=== PATIENT | female | born 1985 | race Caucasian/White ===

== ENCOUNTER 2020-07-15 14:56 | Emergency (ER) | payer OTHER ==
[2020-07-15 16:00] LABS: Absolute Neutrophil Ct (ANC) 5.89 (1.4-6.9); BASOPHIL % 0.2 % (0.0-0.4); Basophil (Absolute #) 0.02 (0-0.4); Eosinophil % 2.8 % (0.00-5.0); Eosinophil (Absolute #) 0.32 (0-0.5); Hematocrit 41.7 % (35-47); Hemoglobin 13.4 gm/dl (12.0-16.0); Lymphocyte (Absolute #) 4.31 (1.0-4.6); Lymphocytes % 37.1 % (24.0-44.0); Mean Cell Volume 85.8 fl (78-100); Mean Corpuscular Hemoglobin 27.6 pg (26-32); Mean Corpuscular Hgb Concent. 32.1 g/dl (32-36); Mean Platelet Volume 12.5 fl (7.5-11.0); Monocyte (Absolute #) 1.07 (0.0-1.3); Monocytes % 9.2 % (0.0-12.0); Neutrophil % 50.7 % (36.0-66.0); Platelet Count 353 K/mm3 (150-450); Red Blood Count 4.86 M/mm3 (4.1-5.4); Red Cell Distribution Width 17.1 % (11.5-14.0); White Blood Count 11.6 K/mm3 (4.0-10.5)
[2020-07-15 16:07] LABS: ALBUMIN 4.6 g/dL (3.5-5.0); ALKALINE PHOSPHATASE 104 U/L (38-126); AMYLASE 65 U/L (30-110); ANION GAP 11.2 MEQ/L (5-15); BLOOD UREA NITROGEN 9 mg/dL (7-17); CHLORIDE 105 mmol/L (98-107); Calcium 9.5 mg/dL (8.4-10.2); Carbon Dioxide 26 mmol/L (22-30); Creatinine 1 0.68 mg/dL (0.52-1.04); EST GLOMERULAR FILTRATION RATE > 60.0 ML/MIN; Glucose 95 mg/dL (74-106); LIPASE 104 U/L (23-300); Potassium 3.7 mmol/L (3.5-5.1); SGOT/AST 19 U/L (14-36); SGPT/ALT 18 U/L (0-35); SODIUM 138 mmol/L (137-145); Total Protein 7.9 g/dL (6.3-8.2)
--- NOTE | 2020-07-15 16:22 | ERPHSYRPT ---
- History of Present Illness Historian: patient Exam Limitations: no limitations Patient Subjective Stated Complaint: pt her for pain to abd for a week now, vomiting, vomited x1 today, had bm 5 weeks ago. has been taking mirlax Triage Nursing Assessment: pt alert, resp easy, skin w/d/p, moves all ext well, face mask in place. abd soft Physician History: 35 yo wf w periumbilical pain x 10 days. Although the pt looks painfree, she states that it is a 10. Pain does not radiate and described as sharp. She has had some N/V and states that she has not had a BM in 5wks. Pt denies hematemesis/melena/hematochezia/dysuria/hematuria/fever/cough/trauma/. Timing/Duration: other (10days) Quality: sharpness Abdominal Pain Onset Location: epigastric Pain Radiation: no radiation Severity of Pain-Max: severe Severity of Pain-Current: severe Modifying Factors: Improves With: nothing Associated Symptoms: nausea, vomiting, No diarrhea Previous symptoms: no prior history Allergies/Adverse Reactions: latex Allergy (Verified 07/15/20 15:15) Penicillins Allergy (Verified 07/15/20 15:15) Home Medications: Ergocalciferol (Vitamin D2) [Vitamin D2] 1 units WEEKLY 07/15/20 [History] Fluoxetine HCl 10 mg [Prozac 10 mg] 1 ea DAILY 07/15/20 [History] Fluticasone/Vilanterol [Breo Ellipta 100-25 Mcg INH] 1 ea DAILY 07/15/20 [History] Omeprazole Magnesium [Prilosec Otc] 1 ea DAILY 07/15/20 [History] Propranolol HCl 10 mg DAILY 07/15/20 [History] Quetiapine Fumarate 1 ea DAILY 07/15/20 [History] Hx Influenza Vaccination/Date Given: Yes Hx Pneumococcal Vaccination/Date Given: No Immunizations Up to Date: Yes Travel Risk - International Travel Have you traveled outside of the country in past 3 weeks: No - Coronavirus Screening Are you exhibiting any of the following symptoms?: No Close contact with a COVID-19 positive Pt in past 14-21 Days: No - Review of Systems Constitutional: No Symptoms Eyes: No Symptoms Ears, Nose, & Throat: No Symptoms Respiratory: No Symptoms Cardiac: No Symptoms Abdominal/Gastrointestinal: No Symptoms, Abdominal Pain, Nausea, Vomiting, Constipation, No Diarrhea Genitourinary Symptoms: No Symptoms Musculoskeletal: No Symptoms Skin: No Symptoms Neurological: No Symptoms Psychological: No Symptoms Endocrine: No Symptoms Hematologic/Lymphatic: No Symptoms Immunological/Allergic: No Symptoms - Past Medical History Pertinent Past Medical History: Yes Neurological History: Seizures Respiratory History: Asthma - Past Surgical History Past Surgical History: Yes Female Surgical History: Tubal Ligation - Social History Smoking Status: Former smoker Exposure to second hand smoke: No Drug Use: none Patient Lives Alone: Yes Significant Family History: no pertinent family hx - Female History Hx Last Menstrual Period: nov Hx Now: No - Nursing Vital Signs Nursing Vital Signs: Initial Vital Signs Temperature 97.7 F 07/15/20 16:09 Pulse Rate 73 07/15/20 16:09 Respiratory Rate 18 07/15/20 16:09 Blood Pressure 111/63 07/15/20 16:09 O2 Sat by Pulse Oximetry 99 07/15/20 16:09 Pain Scale Pain Intensity 4 - Physical Exam General Appearance: no apparent distress Eye Exam: PERRL/EOMI, eyes nml inspection, No scleral icterus, No pale conjunctivae Ears, Nose, Throat Exam: normal ENT inspection, TMs normal, pharynx normal, moist mucous membranes Neck Exam: normal inspection, non-tender, supple, full range of motion, No meningismus, No mass, No Brudzinski, No Kernig's Respiratory Exam: normal breath sounds, lungs clear, airway intact, No respiratory distress Cardiovascular Exam: regular rate/rhythm, normal heart sounds, No murmur Gastrointestinal/Abdomen Exam: soft, normal bowel sounds, tenderness (Mild diffuse wo guarding/rebound), No rebound Back Exam: normal inspection, normal range of motion, No CVA tenderness Extremity Exam: normal inspection, normal range of motion Neurologic Exam: alert, oriented x 3, 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, 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, normal mood/affect, nml cerebellar function, nml station & gait, sensation nml, No motor deficits, No sensory deficit Skin Exam: normal color Lymphatic Exam: No adenopathy SpO2 Interpretation: normal SpO2: 99 O2 Delivery: Room Air - Course Nursing assessment & vital signs reviewed: Yes - CT Exams Abdomen/Pelvis CT Interpretation: Discussed w/radiologist (Mild fecal stasis/spondylolysis wo spondylolisthesis) Ordered Tests: Active Orders 24 hr Category Date Time Status ABDOMEN AND PELVIS W CONTRAST [CT] Stat Exams 07/15/20 17:17 Taken AMYLASE Stat Lab 07/15/20 15:45 Completed CBC W DIFF Stat Lab 07/15/20 15:45 Completed CMP Stat Lab 07/15/20 15:45 Completed LIPASE Stat Lab 07/15/20 15:45 Completed UA W/RFX UR CULTURE Stat Lab 07/15/20 16:41 Completed Lab/Rad Data: Laboratory Result Diagrams 07/15/20 15:45 07/15/20 15:45 Laboratory Results 07/15/20 07/15/20 07/15/20 Range/Units 16:41 15:45 15:45 WBC 11.6 H (4.0-10.5) K/mm3 RBC 4.86 (4.1-5.4) M/mm3 Hgb 13.4 (12.0-16.0) gm/dl Hct 41.7 (35-47) % MCV 85.8 (78-100) fl MCH 27.6 (26-32) pg MCHC 32.1 (32-36) g/dl RDW 17.1 H (11.5-14.0) % Plt Count 353 (150-450) K/mm3 MPV 12.5 H (7.5-11.0) fl Gran % 50.7 (36.0-66.0) % Eos # (Auto) 0.32 (0-0.5) Absolute Lymphs (auto) 4.31 (1.0-4.6) Absolute Monos (auto) 1.07 (0.0-1.3) Lymphocytes % 37.1 (24.0-44.0) % Monocytes % 9.2 (0.0-12.0) % Eosinophils % 2.8 (0.00-5.0) % Basophils % 0.2 (0.0-0.4) % Absolute Granulocytes 5.89 (1.4-6.9) Basophils # 0.02 (0-0.4) Sodium 138 (137-145) mmol/L Potassium 3.7 (3.5-5.1) mmol/L Chloride 105 (98-107) mmol/L Carbon Dioxide 26 (22-30) mmol/L Anion Gap 11.2 (5-15) MEQ/L BUN 9 (7-17) mg/dL Creatinine 0.68 (0.52-1.04) mg/dL Estimated GFR > 60.0 ML/MIN Glucose 95 (74-106) mg/dL Calcium 9.5 (8.4-10.2) mg/dL Total Bilirubin 0.40 (0.2-1.3) mg/dL AST 19 (14-36) U/L ALT 18 (0-35) U/L Alkaline Phosphatase 104 (38-126) U/L Serum Total Protein 7.9 (6.3-8.2) g/dL Albumin 4.6 (3.5-5.0) g/dL Amylase 65 (30-110) U/L Lipase 104 (23-300) U/L Urine Color YELLOW (YELLOW) Urine Appearance SLIGHTLY CLOUDY (CLEAR) Urine pH 5.0 (5-6) Ur Specific [place] 1.023 (1.005-1.025) Urine Protein NEGATIVE (Negative) Urine Ketones NEGATIVE (NEGATIVE) Urine Blood NEGATIVE (0-5) Chun/ul Urine Nitrite NEGATIVE (NEGATIVE) Urine Bilirubin NEGATIVE (NEGATIVE) Urine Urobilinogen 4 (0-1) mg/dL Ur Leukocyte Esterase TRACE (NEGATIVE) Urine WBC (Auto) 3-5 (0-5) /HPF Urine RBC (Auto) 3-5 (0-2) /HPF U Epithel Cells (Auto) RARE (FEW) /HPF Urine Bacteria (Auto) NONE (NEGATIVE) /HPF Urine Mucus (Auto) SLIGHT (NEGATIVE) /HPF Urine Culture Reflexed NO (NO) Urine Glucose NEGATIVE (NEGATIVE) mg/dL Slides for Path Review YES - Progress Counseled pt/family regarding: lab results, diagnosis, need for follow-up, rad results - Departure Departure Disposition: Home Clinical Impression: Urinary tract infection, Constipation Condition: Stable Critical Care Time: No Referrals: JESSICA ALSTON, DOOR TRIMMER [Primary Care Provider] - Instructions: Constipation, Adult (DC), Urinary Tract Infection, Adult (DC), Acute Abdomen (Belly Pain) Additional Instructions: Fluids Lactulose twice a day as needed for constipation Macrobid twice a day for urinary tract infection Return to ER for increasing pain or temperature greater than 100.5 Prescriptions: Lactulose 10 gm PO BIDPRN PRN #150 ml PRN Reason: Constipation Nitrofurantoin Monohyd/M-Cryst [Macrobid 100 mg Capsule] 100 mg PO BID #14 capsule
[2020-07-15 16:37] LABS: Slide Review 1 YES
[2020-07-15 16:38] LABS: Appearance SLIGHTLY CLOUDY (CLEAR); Bilirubin NEGATIVE (NEGATIVE); Blood NEGATIVE Ery/ul (0-5); Epithelial Cells RARE /HPF (FEW); Glucose NEGATIVE (NEGATIVE); Ketones NEGATIVE (NEGATIVE); Leukocyte Esterase TRACE (NEGATIVE); Mucus SLIGHT /HPF (NEGATIVE); Nitrite NEGATIVE (NEGATIVE); Protein,Urine Dip NEGATIVE (Negative); Specific Gravity 1.023 (1.005-1.025); Urobilinogen 4 mg/dL (0-1)
[2020-07-15 17:06] VITALS: BP 114/73
[2020-07-15 18:04] VITALS: PULSE 74
[2020-07-15 18:21] VITALS: O2SAT 99
--- NOTE | 2020-07-16 08:40 | XRAY ---
Indication: Periumbilical pain, nausea, and constipation 5 weeks. Multiple contiguous axial images obtained through the abdomen and pelvis using 80 cc Isovue 370 contrast only. Comparison: None Lung bases demonstrates minimal dependent atelectasis. No infiltrate or effusion. Heart is not enlarged. Stomach is moderately distended with food. Noncontrasted stomach and bowel loops appear nonobstructed. Normal appendix. Mild diffuse fecal debris throughout. No free fluid/air. Remaining liver, gallbladder, pancreas, spleen, adrenal glands, kidneys, ureters, bladder, uterus, and aorta appear normal in CT appearance and attenuation. No pathologic retroperitoneal lymphadenopathy. Osseous structures intact. 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 No ventral or inguinal hernias. Impression: 1. 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 2. Remaining CT abdomen/pelvis with contrast exam is negative.
== END 2020-07-15 18:38 | disposition home or self-care (01) ==
LOC: ED 14:56
DX: N39.0 Urinary tract infection, site not specified (principal); K59.00 Constipation, unspecified; Z79.899 Other long term (current) drug therapy
CPT/HCPCS: 36000; 36415; 74177; 80053; 81001; 82150; 83690; 85025; 99284

== ENCOUNTER 2020-08-16 14:44 | Emergency (ER) | payer OTHER ==
[2020-08-16] MEDS ORDERED: Compazine 10 MG/2 ML IM ONE (14:54)
[2020-08-16] MEDS ORDERED: TORAdol 30 mg Injection IM ONE (14:54)
[2020-08-16] MEDS ORDERED: TORAdol 30 mg Injection ONE (14:59)
[2020-08-16] MEDS ORDERED: Compazine 10 MG/2 ML ONE (14:59)
--- NOTE | 2020-08-16 15:11 | ERPHSYRPT ---
- History of Present Illness Time Seen by Provider: 08/16/20 15:09 Source: patient Exam Limitations: no limitations Patient Subjective Stated Complaint: Pt states "I have had headaches for 6 years and the last two weeks it has been horrible. I just cannot sleep and I need relief." Triage Nursing Assessment: Pt presented alert and oriented X 3, skin pwd Pt ambulates with an upright steady gait, able to speak in clear full sentences. Pt in no apparent respiratory distress. Physician History: Pt states "I have had headaches for 6 years and the last two weeks it has been horrible. I just cannot sleep and I need relief." Patient has a chronic history of headache for which patient has underwent multiple treatments but without any help. She denies any other symptoms. Timing/Duration: week(s) Quality: pressure Head Pain Location: global Severity of Pain-Max: moderate Severity of Pain-Current: moderate Recent Head Trauma: frequent headaches, chronic headaches Associated Symptoms: denies symptoms Allergies/Adverse Reactions: latex Allergy (Verified 07/15/20 15:15) Penicillins Allergy (Verified 07/15/20 15:15) Home Medications: Ergocalciferol (Vitamin D2) [Vitamin D2] 1 units WEEKLY 07/15/20 [History] Fluoxetine HCl 10 mg [Prozac 10 mg] 1 ea DAILY 07/15/20 [History] Fluticasone/Vilanterol [Breo Ellipta 100-25 Mcg INH] 1 ea DAILY 07/15/20 [History] Omeprazole Magnesium [Prilosec Otc] 1 ea DAILY 07/15/20 [History] Propranolol HCl 10 mg DAILY 07/15/20 [History] Quetiapine Fumarate 1 ea DAILY 07/15/20 [History] Hx Tetanus, Diphtheria Vaccination/Date Given: Yes Hx Influenza Vaccination/Date Given: Yes Hx Pneumococcal Vaccination/Date Given: No Immunizations Up to Date: Yes Travel Risk - International Travel Have you traveled outside of the country in past 3 weeks: No - Coronavirus Screening Are you exhibiting any of the following symptoms?: No Close contact with a COVID-19 positive Pt in past 14-21 Days: No - Review of Systems Constitutional: No Fever, No Chills Eyes: No Symptoms Ears, Nose, & Throat: No Symptoms Respiratory: No Cough, No Dyspnea Cardiac: No Chest Pain, No Edema, No Syncope Abdominal/Gastrointestinal: No Abdominal Pain, No Nausea, No Vomiting, No Diarrhea Genitourinary Symptoms: No Dysuria Musculoskeletal: No Back Pain, No Neck Pain Skin: No Rash Neurological: Headache, No Dizziness, No Focal Weakness, No Sensory Changes Psychological: No Symptoms Endocrine: No Symptoms All Other Systems: Reviewed and Negative - Past Medical History Pertinent Past Medical History: Yes Neurological History: Seizures Respiratory History: Asthma - Past Surgical History Past Surgical History: Yes Female Surgical History: Tubal Ligation - Social History Smoking Status: Current every day smoker How long have you smoked: years Exposure to second hand smoke: Yes Drug Use: none Patient Lives Alone: No Significant Family History: no pertinent family hx - Female History Hx Last Menstrual Period: 08/08/2020 Hx Now: No - Nursing Vital Signs Nursing Vital Signs: Initial Vital Signs Temperature 98.9 F 08/16/20 14:49 Pulse Rate 94 H 08/16/20 14:49 Respiratory Rate 20 08/16/20 14:49 Blood Pressure 135/73 08/16/20 14:49 O2 Sat by Pulse Oximetry 100 08/16/20 14:49 Pain Scale Pain Intensity 6 - Physical Exam General Appearance: no apparent distress Eye Exam: PERRL/EOMI Ears, Nose, Throat Exam: normal ENT inspection, moist mucous membranes Neck Exam: normal inspection, supple, full range of motion, No meningismus Respiratory Exam: normal breath sounds, lungs clear Cardiovascular Exam: regular rate/rhythm, normal heart sounds Gastrointestinal/Abdominal Exam: soft, No tenderness, No distention Back Exam: normal inspection, normal range of motion Mental Status Exam: alert, oriented x 3, 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 Exam: normal speech, PERRL, No facial droop Coordination/Gait Exam: normal cerebellar function Motor/Sensory Exam: no motor deficit, no sensory deficit Skin Exam: normal color, warm, dry, No rash SpO2: 100 - Course Nursing assessment & vital signs reviewed: Yes Ordered Tests: Medication Summary Discontinued Medications Generic Name Dose Route Start Last Admin Trade Name Freq PRN Reason Stop Dose Admin Ketorolac Tromethamine 60 mg 08/16/20 14:54 08/16/20 15:00 Toradol 30 Mg Injection IM 08/16/20 14:55 60 mg STAT ONE Administration Ketorolac Tromethamine Confirm 08/16/20 14:59 Toradol 30 Mg Injection Administered 08/16/20 15:00 Dose 60 mg .ROUTE .STK-MED ONE Prochlorperazine Edisylate 10 mg 08/16/20 14:54 08/16/20 15:00 Compazine 10 Mg/2 Ml IM 08/16/20 14:55 10 mg STAT ONE Administration Prochlorperazine Edisylate Confirm 08/16/20 14:59 Compazine 10 Mg/2 Ml Administered 08/16/20 15:00 Dose 10 mg .ROUTE .STK-MED ONE - Progress Progress: improved Air Movement: good Blood Culture(s) Obtained: No Antibiotics given: No Counseled pt/family regarding: diagnosis, need for follow-up - Departure Departure Disposition: Home Clinical Impression: Chronic headache disorder Qualifiers: Headache type: tension-type Intractability: not intractable Qualified Code(s): G44.229 - Chronic tension-type headache, not intractable Condition: Stable Critical Care Time: No Referrals: JESSICA ALSTON NP [Primary Care Provider] - Instructions: Headache, Adult (DC) Additional Instructions: NADIA MENDOZAHER was seen on 08/16/20 n the Emergency Room. At that time you we re treated for an emergent condition, during your visit Laboratory, Radiology and/or other procedures may have been ordered. It is very important that you follow-up with your Primary Care Physician JESSICA ALSTON NP within the next 24-48 hours to review your Emergency Room visit and the final results of testing that was ordered. Some test results such as Urine Cultures, Blood Cultures, and other cultures if ordered will not be finalized for 24-48 hours. If you do not have a Primary Care Provider please call the medical records department at [phone] ext [phone] to obtain a copy of your results or you may sign into our patient portal to obtain these results by visiting us @ [email or web address] and completing the following steps: 1. Click on the Patient Portal link 2. Click the Patient Self Enrollment Link to complete the enrollment form and entering your 3. Once the enrollment form is completed you will receive an email with a temporary ID and password at the email address you provided. 4. Next choose a user name and password. Your user name must be at least 4 characters long and your password must be at least 4 characters long. 5. Choose a security question from the list and provide your answer to the question. If you already have signed into the Health Portal you may access your Health Care Information 07/03 by the following steps: 1. Login to our website @ [email or web address] 2. Enter your original user name and password. FAQS The [facility] Health Portal is an online tool that contains your Lab Results, Radiology Reports, Visit History, Discharge Instructions and Health Summary Lab and Radiology Results will not be available for 72 hours on the portal. The Portal is a secure site, passwords are encryted and URLs are re-written so they cannot be copied and pasted. You and authorized family members are the only ones who can access your Portal. Also there is a timeout feature that protects your information if you leave the Portal page open. If you have technical difficulty please use the Contact Us link on the page this will allow you to submit any questions you have regarding the Portal or you may contact the Medical Record Department at [phone] ext [phone]. Continue all your home medication.
[2020-08-16 15:38] VITALS: BP 121/66; PULSE 74; O2SAT 98
== END 2020-08-16 16:05 | disposition home or self-care (01) ==
LOC: ED 14:44
DX: G44.229 Chronic tension-type headache, not intractable (principal)
CPT/HCPCS: 96372; 99284; U0003; J1885

== ENCOUNTER 2021-02-05 22:20 | Emergency (ER) | payer OTHER ==
[2021-02-05 22:41] LABS: Absolute Neutrophil Ct (ANC) 7.06 (1.4-6.9); BASOPHIL % 0.2 % (0.0-0.4); Basophil (Absolute #) 0.03 (0-0.4); Eosinophil % 1.6 % (0.00-5.0); Eosinophil (Absolute #) 0.23 (0-0.5); Hematocrit 38.6 % (35-47); Hemoglobin 12.1 gm/dl (12.0-16.0); Lymphocyte (Absolute #) 6.03 (1.0-4.6); Lymphocytes % 41.6 % (24.0-44.0); Mean Cell Volume 88.9 fl (78-100); Mean Corpuscular Hemoglobin 27.9 pg (26-32); Mean Corpuscular Hgb Concent. 31.3 g/dl (32-36); Mean Platelet Volume 11.3 fl (7.5-11.0); Monocyte (Absolute #) 1.14 (0.0-1.3); Monocytes % 7.9 % (0.0-12.0); Neutrophil % 48.7 % (36.0-66.0); Platelet Count 364 K/mm3 (150-450); Red Blood Count 4.34 M/mm3 (4.1-5.4); Red Cell Distribution Width 16.4 % (11.5-14.0); White Blood Count 14.5 K/mm3 (4.0-10.5)
[2021-02-05 22:43] VITALS: O2SAT 99
[2021-02-05 22:51] LABS: ALBUMIN 4.2 g/dL (3.5-5.0); ALKALINE PHOSPHATASE 78 U/L (38-126); BLOOD UREA NITROGEN 7 mg/dL (7-17); CHLORIDE 104 mmol/L (98-107); Calcium 9.6 mg/dL (8.4-10.2); Carbon Dioxide 23 mmol/L (22-30); Creatinine 1 0.66 mg/dL (0.52-1.04); EST GLOMERULAR FILTRATION RATE > 60.0 ML/MIN; ETHYL ALCOHOL < 10 mg/dL (0-10); Glucose 108 mg/dL (74-106); MAGNESIUM 1.7 mg/dL (1.6-2.3); Potassium 3.7 mmol/L (3.5-5.1); SGOT/AST 17 U/L (14-36); SGPT/ALT 14 U/L (0-35); SODIUM 137 mmol/L (137-145); Total Protein 7.1 g/dL (6.3-8.2)
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
[2021-02-05 23:58] LABS: Slide Review 1 YES
[2021-02-05 23:59] LABS: Appearance CLEAR (CLEAR); Bilirubin NEGATIVE (NEGATIVE); Blood NEGATIVE Ery/ul (0-5); Epithelial Cells RARE /HPF (FEW); Glucose NEGATIVE (NEGATIVE); Ketones NEGATIVE (NEGATIVE); Leukocyte Esterase NEGATIVE (NEGATIVE); Nitrite NEGATIVE (NEGATIVE); Protein,Urine Dip NEGATIVE (Negative); Specific Gravity 1.008 (1.005-1.025); Urobilinogen NEGATIVE mg/dL (0-1)
[2021-02-06 01:20] VITALS: BP 108/67; PULSE 81
--- NOTE | 2021-02-07 15:11 | XRAY ---
Exam: CT of the head without IV contrast from 02/05/2021. CTDI: 53.92 mGy Comparison: None. Indication: 35-year-old female with seizure and post seizure headache; no known injury; history of seizures since ; no history of prior brain surgery. Technique: Non-IV contrast axial images were obtained through the brain. Reconstructed coronal and sagittal images were created and reviewed. Findings: The ventricles appear of unremarkable size and configuration. No focal mass effect or midline shift is seen. No acute intracranial bleed or abnormal extra-axial fluid collection is seen. Prominent dural calcification is seen within the falx in the midline as an incidental note. The ramos matter-white matter interfaces appear unremarkable. No low attenuation infarct is seen within a major cerebral or cerebellar artery distribution. The cortical sulci and basilar cisterns appear unremarkable. The calvarium of the skull appears intact. The paranasal sinuses reveal moderate scattered bilateral maxillary sinus opacifications, likely due to chronic sinus disease. Correlate clinically. The mastoid air cells are clear without effusion. The middle ear cavities appear grossly unremarkable. The orbits reveal some subtle apparent calcifications along the upper posterior margin of the globe of each eye. These might represent optic drusen or choroidal osteomas, but differential diagnosis is extensive and includes both benign and malignant etiologies. Consider ophthalmology consult. Impression: 1. No acute intracranial bleed or other acute intracranial process is seen. 2. Mild to moderate bilateral maxillary sinus disease, likely chronic. 3. Incidentally, some subtle punctate calcifications are seen at the upper posterior margin of the globe of each eye. See above.
== END 2021-02-06 01:33 | disposition home or self-care (01) ==
LOC: ED 22:20
DX: J32.9 Chronic sinusitis, unspecified (principal); R25.1 Tremor, unspecified; D72.829 Elevated white blood cell count, unspecified; R55 Syncope and collapse; R51.9 Headache, unspecified; Z79.899 Other long term (current) drug therapy; R56.9 Unspecified convulsions
CPT/HCPCS: 36000; 36415; 70450; 80053; 80307; 81001; 83735; 84484; 84703; 85025; 93005; 93041; 94760; 99284; G0480

== ENCOUNTER 2021-08-19 12:09 | Emergency (ER) | payer OTHER ==
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
[2021-08-19 13:04] LABS: Absolute Neutrophil Ct (ANC) 10.48 (1.4-6.9); Basophil (Absolute #) 0.03 (0-0.4); Eosinophil % 1.1 % (0.00-5.0); Eosinophil (Absolute #) 0.19 (0-0.5); Hematocrit 43.1 % (35-47); Hemoglobin 13.6 gm/dl (12.0-16.0); Lymphocyte (Absolute #) 5.14 (1.0-4.6); Lymphocytes % 30.5 % (24.0-44.0); Mean Cell Volume 85.3 fl (78-100); Mean Corpuscular Hemoglobin 26.9 pg (26-32); Mean Corpuscular Hgb Concent. 31.6 g/dl (32-36); Mean Platelet Volume 11.1 fl (7.5-11.0); Monocytes % 5.9 % (0.0-12.0); Neutrophil % 62.3 % (36.0-66.0); Platelet Count 447 K/mm3 (150-450); Red Blood Count 5.05 M/mm3 (4.1-5.4); Red Cell Distribution Width 17.9 % (11.5-14.0); White Blood Count 16.8 K/mm3 (4.0-10.5)
[2021-08-19 13:09] LABS: Appearance CLOUDY (CLEAR); Bacteria RARE /HPF (NEGATIVE); Bilirubin NEGATIVE (NEGATIVE); Blood LARGE Ery/ul (0-5); Epithelial Cells FEW /HPF (FEW); Glucose NEGATIVE (NEGATIVE); Ketones NEGATIVE (NEGATIVE); Leukocyte Esterase MODERATE (NEGATIVE); Mucus SLIGHT /HPF (NEGATIVE); Nitrite NEGATIVE (NEGATIVE); Protein,Urine Dip NEGATIVE (Negative); RBC 26-50 /HPF (0-2); Specific Gravity 1.026 (1.005-1.025); Urobilinogen 2 mg/dL (0-1); WBC 26-50 /HPF (0-5)
[2021-08-19 13:12] VITALS: PULSE 80
--- NOTE | 2021-08-19 13:15 | XRAY ---
Indication: Whole body numbness for weeks. Multiple contiguous axial images obtained through the head without contrast. Comparison: February 05, 2021. Normal appearing brain parenchyma, ventricles, and bony calvarium. Mild mucosal thickening both maxillary and lesser degree right frontal sinuses. Mastoid air cells are clear. Impression: Continued normal CT head without contrast exam. Again incidental paranasal sinus disease.
[2021-08-19 13:18] LABS: Amphetamine,Urine NEGATIVE (NEGATIVE); Barbiturate,Urine NEGATIVE (NEGATIVE); Benzodiazepine,Urine NEGATIVE (NEGATIVE); Cocaine,Urine NEGATIVE (NEGATIVE); Methadone,Urine NEGATIVE (NEGATIVE); Opiate,Urine NEGATIVE (NEGATIVE); PCP,Urine NEGATIVE (NEGATIVE); THC,Urine NEGATIVE (NEGATIVE)
[2021-08-19 13:29] LABS: ALBUMIN 4.5 g/dL (3.5-5.0); ALKALINE PHOSPHATASE 89 U/L (38-126); ANION GAP 15.1 MEQ/L (5-15); BLOOD UREA NITROGEN 9 mg/dL (7-17); CHLORIDE 104 mmol/L (98-107); Calcium 9.8 mg/dL (8.4-10.2); Carbon Dioxide 24 mmol/L (22-30); EST GLOMERULAR FILTRATION RATE > 60.0 ML/MIN; Glucose 124 mg/dL (74-106); Potassium 4.1 mmol/L (3.5-5.1); SGOT/AST 19 U/L (14-36); SGPT/ALT 17 U/L (0-35); SODIUM 139 mmol/L (137-145); Total Protein 7.2 g/dL (6.3-8.2)
[2021-08-19 13:31] LABS: Slide Review 1 YES
[2021-08-19 13:48] VITALS: BP 109/67; O2SAT 98
== END 2021-08-19 13:58 | disposition home or self-care (01) ==
LOC: ED 12:09
DX: R20.0 Anesthesia of skin (principal); J32.9 Chronic sinusitis, unspecified; Z72.0 Tobacco use; N39.0 Urinary tract infection, site not specified; Z87.820 Personal history of traumatic brain injury; F20.9 Schizophrenia, unspecified; F31.9 Bipolar disorder, unspecified; G40.909 Epilepsy, unspecified, not intractable, without status epilepticus
CPT/HCPCS: 36415; 70450; 80053; 80307; 81001; 83735; 85025; 87086; 94760; 99284

== ENCOUNTER 2022-08-30 08:00 | Observation (INO) | payer OTHER ==
[2022-08-30] MEDS ORDERED: Sodium Chloride 0.9% 1000 ML 1,000 ML IV STA (08:34)
[2022-08-30] MEDS ORDERED: Zofran 4 MG/2 ML VIAL IV ONE (08:36)
[2022-08-30] MEDS ORDERED: MORPHINE SULFATE 2 MG INJ IV ONE (08:36)
[2022-08-30] MEDS ORDERED: Sodium Chloride 0.9% 1000 ML 1,000 ML ONE (08:40)
[2022-08-30] MEDS ORDERED: MORPHINE SULFATE 2 MG INJ ONE (08:40)
[2022-08-30] MEDS ORDERED: Zofran 4 MG/2 ML VIAL ONE (08:40)
[2022-08-30 09:00] LABS: Absolute Neutrophil Ct (ANC) 16.24 x10^3/uL (1.4-6.9); Basophil (Absolute #) 0.04 x10^3/uL (0-0.4); Eosinophil % 0.5 % (0.00-5.0); Eosinophil (Absolute #) 0.11 x10^3/uL (0-0.5); Hematocrit 46.7 % (35-47); Hemoglobin 15.5 g/dL (12.0-16.0); Lymphocyte (Absolute #) 1.93 x10^3/uL (1.0-4.6); Lymphocytes % 9.4 % (24.0-44.0); Mean Cell Volume 91.7 fL (78-100); Mean Corpuscular Hemoglobin 30.5 pg (26-32); Mean Corpuscular Hgb Concent. 33.2 g/dL (32-36); Mean Platelet Volume 11.3 fL (7.5-11.0); Monocyte (Absolute #) 2.02 x10^3/uL (0.0-1.3); Monocytes % 9.9 % (0.0-12.0); Neutrophil % 79.5 % (36.0-66.0); Platelet Count 302 x10^3/uL (150-450); Red Blood Count 5.09 x10^6/uL (4.1-5.4); Red Cell Distribution Width 13.2 % (11.5-14.0); White Blood Count 20.4 x10^3/uL (4.0-10.5)
[2022-08-30 09:14] LABS: ALBUMIN 4.6 g/dL (3.5-5.0); ALKALINE PHOSPHATASE 85 U/L (38-126); ANION GAP 15.4 MEQ/L (5-15); BLOOD UREA NITROGEN 11 mg/dL (7-17); CHLORIDE 98 mmol/L (98-107); Calcium 8.7 mg/dL (8.4-10.2); Carbon Dioxide 23 mmol/L (22-30); Creatinine 1 0.71 mg/dL (0.52-1.04); EST GLOMERULAR FILTRATION RATE > 60.0 ML/MIN; Glucose 131 mg/dL (74-106); Potassium 3.4 mmol/L (3.5-5.1); SGOT/AST 19 U/L (14-36); SGPT/ALT 18 U/L (0-35); SODIUM 133 mmol/L (137-145); Total Protein 7.8 g/dL (6.3-8.2)
[2022-08-30 09:25] LABS: Slide Review 1 YES
[2022-08-30 09:43] LABS: INFLUENZA A NEGATIVE (NEGATIVE); INFLUENZA B NEGATIVE (NEGATIVE); RESPIRATORY SYNCTIAL VIRUS NEGATIVE (Negative); SARS-CoV-2 Xpert Express NEGATIVE (NEGATIVE)
[2022-08-30 09:45] LABS: Appearance Turbid (Clear); Bacteria Rare /HPF (None Seen); Bilirubin Negative (Negative); Blood Trace (Negative); Epithelial Cells Few /HPF (None Seen); Glucose, Urine Negative (Negative); Hyaline Casts NONE SEEN /LPF (0-2); Ketones 40 (Negative); Leukocyte Esterase Negative (Negative); Nitrite Negative (Negative); Protein,Urine Dip 30 (Negative); Specific Gravity >=1.030 (1.005-1.030); Urobilinogen 0.2 mg/dL (0.2)
[2022-08-30 09:47] LABS: ADD URINE CULTURE? YES (NO)
--- NOTE | 2022-08-30 10:41 | XRAY ---
Indication: Pain, vomiting, and diarrhea. Multiple contiguous axial images obtained through the abdomen and pelvis without contrast. Comparison: July 15, 2020 Lung bases again demonstrate minimal dependent atelectasis. Heart not enlarged. Noncontrasted stomach and bowel loops are nonobstructed again with normal appendix. Ileocecal junction, ascending colon and lesser degree transverse colon demonstrates new mild circumferential bowel wall thickening with stranding favoring Crohn's disease. No free fluid/air. Uterus demonstrates new IUD in situ. Remaining liver, gallbladder, pancreas, spleen, adrenal glands, kidneys, ureters, bladder, and aorta are unremarkable for noncontrast exam. 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 Impression: 1. New CT features as detailed favoring Crohn's disease. 2. Stable L5 spondylolysis without listhesis.
--- NOTE | 2022-08-30 10:44 | ERPHSYRPT ---
- History of Present Illness Time Seen by Provider: 08/30/22 10:38 Historian: patient Exam Limitations: other (Patient is a history of TBI. Patient is a poor historian. Patient's mother is at bedside contributing to the history of present illness.) Patient Subjective Stated Complaint: C/O body aches, headache, fever, abdominal pain, N/V, diarrhea that started yesterday evening Triage Nursing Assessment: Patient ambulated back to ED crying. No SOB noted. Patient is alert but anxious. She is gaurding her stomach; states pain is the entire abdomen but points to the center of her stomach when asked to indicate where the pain is located. Abdomen is tender. She is restless in bed. Skin is hot to touch and face is flushed. POWER [place]. Physician History: Patient is a 37-year-old female presents to emergency department with her mother for evaluation of abdominal pain. Patient has a history of a traumatic brain injury which affected her cognition. Patient's mother is assisting with this history of present illness. Upon arrival patient was triaged and observed to have a temperature of 101.5. Patient has a tachycardia of 126 at rest. Patient states she has been experiencing nausea vomiting diarrhea. Patient is experiencing a frontal headache with generalized fatigue and body aches. Patient symptoms started yesterday. Symptoms have been constant. No specific worsening or improving factors. No other sick contacts. Patient denies vaginal discharge. No urinary symptomology. Patient/mother voiced no other complaints or concerns at this time. Portions of this note were created with voice recognition technology. There may be grammatical, spelling, punctuation or sound alike errors Timing/Duration: yesterday Activities at Onset: none Quality: aching Abdominal Pain Onset Location: periumbilical, generalized abdomen Pain Radiation: no radiation Severity of Pain-Max: moderate Severity of Pain-Current: mild Modifying Factors: Improves With: palpation Associated Symptoms: diarrhea, fever/chills, headache, nausea, vomiting Previous symptoms: no prior history Allergies/Adverse Reactions: latex Allergy (Verified 08/30/22 08:10) Penicillins Allergy (Verified 08/30/22 08:10) Home Medications: Verapamil HCl 80 mg [Calan 80 mg] 40 mg PO BID 02/05/21 [History] Buspirone HCl 1 tab PO BID 08/30/22 [History] Cariprazine HCl [Vraylar] 1 cap PO DAILY 08/30/22 [History] Omeprazole Magnesium [Prilosec Otc] 1 cap PO BID 08/30/22 [History] Tizanidine HCl 1 tab PO BID 08/30/22 [History] Hx Tetanus, Diphtheria Vaccination/Date Given: Yes Hx Influenza Vaccination/Date Given: Yes Hx Pneumococcal Vaccination/Date Given: No Immunizations Up to Date: Yes Travel Risk - International Travel Have you traveled outside of the country in past 3 weeks: No - Coronavirus Screening Are you exhibiting any of the following symptoms?: Yes Symptoms: Fever, Vomiting/Diarrhea, Headaches/Body Aches/Fatigue Close contact with a COVID-19 positive Pt in past 14-21 Days: No - Vaccine Status Have you recieved a Covid-19 vaccination: Yes Manager Of Disaster Recovery: Unknown - Vaccination Dates Dates if Unknown: unknown - Review of Systems Constitutional: No Symptoms, No Fever, No Chills Eyes: No Symptoms Ears, Nose, & Throat: No Symptoms Respiratory: No Symptoms, No Cough, No Dyspnea Cardiac: No Symptoms, No Chest Pain, No Edema, No Syncope Abdominal/Gastrointestinal: No Symptoms, No Abdominal Pain, No Nausea, No Vomiting, No Diarrhea Genitourinary Symptoms: No Symptoms, No Dysuria Musculoskeletal: No Symptoms, No Back Pain, No Neck Pain Skin: No Symptoms, No Rash Neurological: No Symptoms, No Dizziness, No Focal Weakness, No Sensory Changes Psychological: No Symptoms Endocrine: No Symptoms Hematologic/Lymphatic: No Symptoms All Other Systems: Reviewed and Negative - Past Medical History Pertinent Past Medical History: Yes Neurological History: Migraines, Seizures Respiratory History: Asthma GI Medical History: GERD Psycho-Social History: Bipolar, Depression, Other Other Medical History: schizophrenia, TBI, occipital neurolgia - Past Surgical History Past Surgical History: Yes Female Surgical History: Section, Tubal Ligation - Social History Smoking Status: Current every day smoker How long have you smoked: 18 years Exposure to second hand smoke: Yes Drug Use: none Patient Lives Alone: No Significant Family History: no pertinent family hx - Female History Hx Last Menstrual Period: No longer has them Hx Now: No - Nursing Vital Signs Nursing Vital Signs: Initial Vital Signs Temperature 101.5 F 08/30/22 08:12 Pulse Rate 126 H 08/30/22 08:12 Respiratory Rate 19 08/30/22 08:12 Blood Pressure 146/94 08/30/22 08:12 Pain Scale Pain Intensity 8 - Physical Exam General Appearance: no apparent distress, alert Eye Exam: PERRL/EOMI, eyes nml inspection Ears, Nose, Throat Exam: normal ENT inspection, TMs normal, pharynx normal, moist mucous membranes Neck Exam: normal inspection, non-tender, supple, full range of motion Respiratory Exam: normal breath sounds, lungs clear, airway intact, No respiratory distress Cardiovascular Exam: regular rate/rhythm, normal heart sounds, normal peripheral pulses Gastrointestinal/Abdomen Exam: soft, normal bowel sounds, tenderness, other ( Diffuse abdominal tenderness is however more so the periumbilical region. Overlying soft tissue intact. No signs of trauma.), No mass Back Exam: normal inspection, normal range of motion, No CVA tenderness, No vertebral tenderness Extremity Exam: normal inspection, normal range of motion, pelvis stable Neurologic Exam: alert, oriented x 3, cooperative, normal mood/affect, nml cerebellar function, sensation nml, No motor deficits Skin Exam: normal color, warm, dry Lymphatic Exam: No adenopathy SpO2 Interpretation: normal SpO2: 98 O2 Delivery: Room Air - Course Nursing assessment & vital signs reviewed: Yes - CT Exams Abdomen/Pelvis CT Interpretation: Tele-radiologist Report (Ileocecal junction ascending colon transverse colon new circumferential wall thickening with fat stranding favoring Crohn's colitis. Stable L5/S1 spondylolysis) Ordered Tests: Active Orders 24 hr Category Date Time Status Business Supervisor STAT Care 08/30/22 08:35 Active IV Insertion STAT Care 08/30/22 08:34 Active Pulse Oximetry (ED) STAT Care 08/30/22 08:34 Active ABDOMEN AND PELVIS W/0 CONTRAS [CT] Stat Exams 08/30/22 08:35 Completed BLOOD CULTURE Stat Lab 08/30/22 08:52 Received CBC W DIFF Stat Lab 08/30/22 08:34 Completed CMP Stat Lab 08/30/22 08:43 Completed CULTURE,URINE Stat Lab 08/30/22 09:23 Received HCG,QUALITATIVE URINE Stat Lab 08/30/22 09:23 Completed Lactic Acid Stat Lab 08/30/22 08:34 Completed TROPONIN Q4H Lab 08/30/22 08:43 Completed TROPONIN Q4H Lab 08/30/22 12:45 Ordered TROPONIN Q4H Lab 08/30/22 16:45 Ordered UA W/RFX UR CULTURE Stat Lab 08/30/22 09:23 Completed Medication Summary Generic Name Dose Route Start Last Admin Trade Name Jaxson PRN Reason Stop Dose Admin Levofloxacin/Dextrose 500 mg in 100 mls @ 100 mls/hr 08/30/22 11:05 Levofloxacin 500mg/100ml D5w IV 08/30/22 12:04 STAT STA Discontinued Medications Generic Name Dose Route Start Last Admin Trade Name Jaxson PRN Reason Stop Dose Admin Sodium Chloride 1,000 mls @ 999 mls/hr 08/30/22 08:34 08/30/22 10:06 Sodium Chloride 0.9% 1000 Ml IV 08/30/22 09:34 Infused .Q1H1M STA Infusion Sodium Chloride Confirm 08/30/22 08:40 Sodium Chloride 0.9% 1000 Ml Administered 08/30/22 08:41 Dose 1,000 mls @ ud .ROUTE .STK-MED ONE Metronidazole 500 mg in 100 mls @ 200 mls/hr 08/30/22 11:05 Flagyl 500 Mg Ivpb IV 08/30/22 11:34 STAT STA Morphine Sulfate 2 mg 08/30/22 08:36 08/30/22 08:46 Morphine Sulfate 2 Mg/Ml Inj IV 08/30/22 08:37 2 mg STAT ONE Administration Morphine Sulfate Confirm 08/30/22 08:40 Morphine Sulfate 2 Mg/Ml Inj Administered 08/30/22 08:41 Dose 2 mg .ROUTE .STK-MED ONE Ondansetron HCl 4 mg 08/30/22 08:36 08/30/22 08:46 Ondansetron Hcl 4 Mg/2 Ml Vial IV 08/30/22 08:37 4 mg STAT ONE Administration Ondansetron HCl Confirm 08/30/22 08:40 Ondansetron Hcl 4 Mg/2 Ml Vial Administered 08/30/22 08:41 Dose 4 mg .ROUTE .STK-MED ONE Pantoprazole Sodium 40 mg 08/30/22 10:48 08/30/22 10:58 Pantoprazole 40 Mg Vial IV 08/30/22 10:49 40 mg STAT ONE Administration Pantoprazole Sodium Confirm 08/30/22 10:49 Pantoprazole 40 Mg Vial Administered 08/30/22 10:50 Dose 40 mg IV .STK-MED ONE Lab/Rad Data: Laboratory Result Diagrams 08/30/22 08:34 08/30/22 08:43 Laboratory Results 08/30/22 08/30/22 08/30/22 Range/Units 09:23 09:23 08:54 WBC (4.0-10.5) x10^3/uL RBC (4.1-5.4) x10^6/uL Hgb (12.0-16.0) g/dL Hct (35-47) % MCV (78-100) fL MCH (26-32) pg MCHC (32-36) g/dL RDW (11.5-14.0) % Plt Count (150-450) x10^3/uL MPV (7.5-11.0) fL Gran % (36.0-66.0) % Immature Gran % (Auto) (0.00-0.4) % Nucleat RBC Rel Count (0.00-0.1) % Eos # (Auto) (0-0.5) x10^3/uL Immature Gran # (Auto) (0.00-0.03) x10^3u/L Absolute Lymphs (auto) (1.0-4.6) x10^3/uL Absolute Monos (auto) (0.0-1.3) x10^3/uL Absolute Nucleated RBC (0.00-0.01) x10^3u/L Lymphocytes % (24.0-44.0) % Monocytes % (0.0-12.0) % Eosinophils % (0.00-5.0) % Basophils % (0.0-0.4) % Absolute Granulocytes (1.4-6.9) x10^3/uL Basophils # (0-0.4) x10^3/uL Sodium (137-145) mmol/L Potassium (3.5-5.1) mmol/L Chloride (98-107) mmol/L Carbon Dioxide (22-30) mmol/L Anion Gap (5-15) MEQ/L BUN (7-17) mg/dL Creatinine (0.52-1.04) mg/dL Estimated GFR ML/MIN Glucose (74-106) mg/dL Lactic Acid (0.4-2.0) Calcium (8.4-10.2) mg/dL Total Bilirubin (0.2-1.3) mg/dL AST (14-36) U/L ALT (0-35) U/L Alkaline Phosphatase (38-126) U/L Troponin I (0.000-0.034) ng/mL Serum Total Protein (6.3-8.2) g/dL Albumin (3.5-5.0) g/dL Urine Color Dark Yellow A (Yellow) Urine Appearance Turbid A (Clear) Urine pH 5.0 (4.6-8.0) Ur Specific [place] >=1.030 A (1.005-1.030) Urine Protein 30 (Negative) Urine Glucose (UA) Negative (Negative) mg/dL Urine Ketones 40 A (Negative) Urine Blood Trace (Negative) Urine Nitrite Negative (Negative) Urine Bilirubin Negative (Negative) Urine Urobilinogen 0.2 (0.2) mg/dL Ur Leukocyte Esterase Negative (Negative) U Hyaline Cast (Auto) NONE SEEN (0-2) /LPF Urine Microscopic RBC 6-10 A (0-5) /HPF Urine Microscopic WBC 3-5 (0-5) /HPF Ur Epithelial Cells Few (None Seen) /HPF Urine Bacteria Rare A (None Seen) /HPF Urine Culture Reflexed YES (NO) Urine HCG, Qual NEGATIVE (Negative) Influenza Type A Ag NEGATIVE (NEGATIVE) Influenza Type B Ag NEGATIVE (NEGATIVE) RSV (PCR) NEGATIVE (Negative) SARS-CoV-2 (PCR) NEGATIVE (NEGATIVE) Slides for Path Review 08/30/22 08/30/22 08/30/22 Range/Units 08:43 08:43 08:34 WBC (4.0-10.5) x10^3/uL RBC (4.1-5.4) x10^6/uL Hgb (12.0-16.0) g/dL Hct (35-47) % MCV (78-100) fL MCH (26-32) pg MCHC (32-36) g/dL RDW (11.5-14.0) % Plt Count (150-450) x10^3/uL MPV (7.5-11.0) fL Gran % (36.0-66.0) % Immature Gran % (Auto) (0.00-0.4) % Nucleat RBC Rel Count (0.00-0.1) % Eos # (Auto) (0-0.5) x10^3/uL Immature Gran # (Auto) (0.00-0.03) x10^3u/L Absolute Lymphs (auto) (1.0-4.6) x10^3/uL Absolute Monos (auto) (0.0-1.3) x10^3/uL Absolute Nucleated RBC (0.00-0.01) x10^3u/L Lymphocytes % (24.0-44.0) % Monocytes % (0.0-12.0) % Eosinophils % (0.00-5.0) % Basophils % (0.0-0.4) % Absolute Granulocytes (1.4-6.9) x10^3/uL Basophils # (0-0.4) x10^3/uL Sodium 133 L (137-145) mmol/L Potassium 3.4 L (3.5-5.1) mmol/L Chloride 98 (98-107) mmol/L Carbon Dioxide 23 (22-30) mmol/L Anion Gap 15.4 H (5-15) MEQ/L BUN 11 (7-17) mg/dL Creatinine 0.71 (0.52-1.04) mg/dL Estimated GFR > 60.0 ML/MIN Glucose 131 H (74-106) mg/dL Lactic Acid 1.3 (0.4-2.0) Calcium 8.7 (8.4-10.2) mg/dL Total Bilirubin 0.70 (0.2-1.3) mg/dL AST 19 (14-36) U/L ALT 18 (0-35) U/L Alkaline Phosphatase 85 (38-126) U/L Troponin I < 0.012 (0.000-0.034) ng/mL Serum Total Protein 7.8 (6.3-8.2) g/dL Albumin 4.6 (3.5-5.0) g/dL Urine Color (Yellow) Urine Appearance (Clear) Urine pH (4.6-8.0) Ur Specific [place] (1.005-1.030) Urine Protein (Negative) Urine Glucose (UA) (Negative) mg/dL Urine Ketones (Negative) Urine Blood (Negative) Urine Nitrite (Negative) Urine Bilirubin (Negative) Urine Urobilinogen (0.2) mg/dL Ur Leukocyte Esterase (Negative) U Hyaline Cast (Auto) (0-2) /LPF Urine Microscopic RBC (0-5) /HPF Urine Microscopic WBC (0-5) /HPF Ur Epithelial Cells (None Seen) /HPF Urine Bacteria (None Seen) /HPF Urine Culture Reflexed (NO) Urine HCG, Qual (Negative) Influenza Type A Ag (NEGATIVE) Influenza Type B Ag (NEGATIVE) RSV (PCR) (Negative) SARS-CoV-2 (PCR) (NEGATIVE) Slides for Path Review 08/30/22 Range/Units 08:34 WBC 20.4 H (4.0-10.5) x10^3/uL RBC 5.09 (4.1-5.4) x10^6/uL Hgb 15.5 (12.0-16.0) g/dL Hct 46.7 (35-47) % MCV 91.7 (78-100) fL MCH 30.5 (26-32) pg MCHC 33.2 (32-36) g/dL RDW 13.2 (11.5-14.0) % Plt Count 302 (150-450) x10^3/uL MPV 11.3 H (7.5-11.0) fL Gran % 79.5 H (36.0-66.0) % Immature Gran % (Auto) 0.5 H (0.00-0.4) % Nucleat RBC Rel Count 0.0 (0.00-0.1) % Eos # (Auto) 0.11 (0-0.5) x10^3/uL Immature Gran # (Auto) 0.10 H (0.00-0.03) x10^3u/L Absolute Lymphs (auto) 1.93 (1.0-4.6) x10^3/uL Absolute Monos (auto) 2.02 H (0.0-1.3) x10^3/uL Absolute Nucleated RBC 0.00 (0.00-0.01) x10^3u/L Lymphocytes % 9.4 L (24.0-44.0) % Monocytes % 9.9 (0.0-12.0) % Eosinophils % 0.5 (0.00-5.0) % Basophils % 0.2 (0.0-0.4) % Absolute Granulocytes 16.24 H (1.4-6.9) x10^3/uL Basophils # 0.04 (0-0.4) x10^3/uL Sodium (137-145) mmol/L Potassium (3.5-5.1) mmol/L Chloride (98-107) mmol/L Carbon Dioxide (22-30) mmol/L Anion Gap (5-15) MEQ/L BUN (7-17) mg/dL Creatinine (0.52-1.04) mg/dL Estimated GFR ML/MIN Glucose (74-106) mg/dL Lactic Acid (0.4-2.0) Calcium (8.4-10.2) mg/dL Total Bilirubin (0.2-1.3) mg/dL AST (14-36) U/L ALT (0-35) U/L Alkaline Phosphatase (38-126) U/L Troponin I (0.000-0.034) ng/mL Serum Total Protein (6.3-8.2) g/dL Albumin (3.5-5.0) g/dL Urine Color (Yellow) Urine Appearance (Clear) Urine pH (4.6-8.0) Ur Specific [place] (1.005-1.030) Urine Protein (Negative) Urine Glucose (UA) (Negative) mg/dL Urine Ketones (Negative) Urine Blood (Negative) Urine Nitrite (Negative) Urine Bilirubin (Negative) Urine Urobilinogen (0.2) mg/dL Ur Leukocyte Esterase (Negative) U Hyaline Cast (Auto) (0-2) /LPF Urine Microscopic RBC (0-5) /HPF Urine Microscopic WBC (0-5) /HPF Ur Epithelial Cells (None Seen) /HPF Urine Bacteria (None Seen) /HPF Urine Culture Reflexed (NO) Urine HCG, Qual (Negative) Influenza Type A Ag (NEGATIVE) Influenza Type B Ag (NEGATIVE) RSV (PCR) (Negative) SARS-CoV-2 (PCR) (NEGATIVE) Slides for Path Review YES - Progress Progress Note: 08/30/22 10:39 Patient is a 37-year-old female presents to emergency department for evaluation of fever nausea vomiting abdominal pain and body aches x1 day. Physical exam reveals diffuse abdominal tenderness however more so at the [place] umbilical region. Complexity of complaint is moderate. Patient has no known comorbidities that are actively contributing to patient's current symptomology. Test ordered include CBC. Patient has a leukocytosis of 20,000. CMP reveals a potassium of 3.4 and hyponatremia of 133. Urinalysis shows a dark turbid urine with ketones. Specific gravity is 1.030. Patient is COVID-negative. Lactic acid within normal limits. Troponin negative. Patient's work-up and results were reviewed and analyzed. Findings were used in medical decision-making. Patient received IV fluids/normal saline, a dose of pantoprazole. Morphine for pain control, Zofran for nausea. CT scan reveals a Crohn's colitis. In light of patient's fever and leukocytosis antibiotics were ordered. Patient is allergic to penicillin. Patient received Levaquin and metronidazole. Intravenous potassium administered for hypokalemia. Patient reassessed. Symptoms improved however not completely resolved at this time. Case discussed with Dr. Warren who accepts admission to observation. Patient is COVID-negative. Plan of care discussed with patient. She agrees to admission at [facility] for further evaluation and treatment. Level of EM service provided was moderate. Complexity of problem addressed was moderate. Amount and complexity of data reviewed and analyzed was moderate. Risks of complication and morbidity/mortality was moderate. No critical care time. Patient is not an independent/competent historian due to history of traumatic brain injury. Patient's mother is at bedside contributing to HPI. 08/30/22 11:08 Patient given rectal Tylenol for fever. 08/30/22 12:07 Discussed with : Nohelia Will see patient in: hospital (observation) Counseled pt/family regarding: lab results, diagnosis, rad results - Departure Departure Disposition: Observation Clinical Impression: Crohn's colitis, Abdominal pain, Leukocytosis, Dehydration, Hyponatremia, Hypokalemia, Fever Condition: Stable Critical Care Time: No Referrals: JESSICA ALSTON, ASSISTANT MAINTENANCE MANAGER [Primary Care Provider] - Follow up/PCP as directed
[2022-08-30] MEDS ORDERED: PROTONIX 40 MG IV IV ONE ×2 (10:48→10:49)
[2022-08-30] MEDS ORDERED: FLAGYL 500 MG IVPB 500 MG/100 ML BAG IV STA (11:05)
[2022-08-30] MEDS ORDERED: FLAGYL 500 MG IVPB 500 MG/100 ML BAG IV ONE (12:07)
[2022-08-30] MEDS ORDERED: TYLENOL EXTRA STRENGTH 500 MG PO STA (12:11)
[2022-08-30] MEDS ORDERED: TYLENOL EXTRA STRENGTH 500 MG ONE (12:14)
[2022-08-30] MEDS ORDERED: Levofloxacin 500MG/100ML D5W 500 MG/100 ML BAG IV ONE (13:02)
[2022-08-30] MEDS ORDERED: MORPHINE SULFATE 4 MG INJ IV PRN (13:20)
[2022-08-30] MEDS ORDERED: Morphine PCA 1 MG/ML IV PRN (13:22)
[2022-08-30] MEDS ORDERED: MORPHINE SULFATE 10 MG/ML IV ONE (13:23)
[2022-08-30] MEDS: Levofloxacin 500MG/100ML D5W 500 MG/100 ML BAG IV STA ×2 (13:37→16:27)
[2022-08-30] MEDS: Levofloxacin 500MG/100ML D5W 500 MG/100 ML BAG IV SCH (13:37)
[2022-08-30] MEDS ORDERED: DILAUDID 1 MG/1ML PCA SYRINGE IV PRN (13:55)
[2022-08-30] MEDS ORDERED: Hydromorphone 1 mg/ml Injection IV ONE (13:58)
[2022-08-30] MEDS: Phenergan 25 MG INJ*** 12.5 MG in Sodium Chloride 0.9% 100 ML IV SCH ×2 (14:44→22:24)
[2022-08-30] MEDS: Sodium Chloride 0.9% 1000 ML 1,000 ML IV SCH ×2 (16:26→23:15)
[2022-08-30] MEDS: FLAGYL 500 MG IVPB 500 MG/100 ML BAG IV SCH ×2 (17:55→23:15)
[2022-08-30] MEDS ORDERED: CALAN 80 MG PO ONE (18:00)
[2022-08-30] MEDS ORDERED: Zanaflex 4 MG PO ONE (18:00)
[2022-08-30] MEDS ORDERED: Phenergan 25 MG INJ*** 12.5 MG in Sodium Chloride 0.9% 100 ML IV PRN (20:30)
[2022-08-30] MEDS ORDERED: MELATONIN PO ONE ×2 (22:00)
[2022-08-30] MEDS ORDERED: BUSPAR 5 MG PO ONE (22:00)
[2022-08-31] MEDS: TYLENOL 325 MG PO PRN ×2 (00:42→04:42)
[2022-08-31] MEDS: Zofran 4 MG/2 ML VIAL IV PRN ×2 (00:42→09:46)
[2022-08-31 05:06] LABS: Basophil (Absolute #) 0.03 x10^3/uL (0-0.4); Eosinophil % 0.1 % (0.00-5.0); Eosinophil (Absolute #) 0.01 x10^3/uL (0-0.5); Hematocrit 42.1 % (35-47); Lymphocyte (Absolute #) 2.89 x10^3/uL (1.0-4.6); Lymphocytes % 24.7 % (24.0-44.0); Mean Cell Volume 90.5 fL (78-100); Mean Corpuscular Hemoglobin 30.1 pg (26-32); Mean Corpuscular Hgb Concent. 33.3 g/dL (32-36); Mean Platelet Volume 11.2 fL (7.5-11.0); Monocyte (Absolute #) 1.56 x10^3/uL (0.0-1.3); Monocytes % 13.3 % (0.0-12.0); Neutrophil % 61.3 % (36.0-66.0); Platelet Count 217 x10^3/uL (150-450); Red Blood Count 4.65 x10^6/uL (4.1-5.4); Red Cell Distribution Width 13.5 % (11.5-14.0); White Blood Count 11.7 x10^3/uL (4.0-10.5)
[2022-08-31 05:34] LABS: ALBUMIN 3.6 g/dL (3.5-5.0); ALKALINE PHOSPHATASE 62 U/L (38-126); BLOOD UREA NITROGEN 5 mg/dL (7-17); CHLORIDE 102 mmol/L (98-107); Calcium 7.8 mg/dL (8.4-10.2); Carbon Dioxide 23 mmol/L (22-30); Creatinine 1 0.65 mg/dL (0.52-1.04); EST GLOMERULAR FILTRATION RATE > 60.0 ML/MIN; Glucose 120 mg/dL (74-106); SGOT/AST 18 U/L (14-36); SGPT/ALT 16 U/L (0-35); SODIUM 132 mmol/L (137-145); Total Protein 6.3 g/dL (6.3-8.2)
[2022-08-31 05:44] LABS: Potassium 2.8 mmol/L (3.5-5.1); Slide Review 1 YES
[2022-08-31] MEDS: FLAGYL 500 MG IVPB 500 MG/100 ML BAG IV SCH ×3 (05:56→17:38)
[2022-08-31] MEDS: POTASSIUM CHLORIDE 20 mEq IN WATER 100ML 20 MEQ/100 ML BAG IV SCH ×3 (06:21→11:28)
[2022-08-31] MEDS ORDERED: MEDICATION INTERVENTION MC SCH (07:30)
[2022-08-31] MEDS: CALAN 80 MG PO SCH (09:29)
[2022-08-31] MEDS: Levofloxacin 500MG/100ML D5W 500 MG/100 ML BAG IV SCH (09:35)
[2022-08-31] MEDS ORDERED: NON-FORMULARY ITEM (Buspirone Hcl [Buspirone Hcl] 7.5 MG Tablet) PO SCH (10:00)
[2022-08-31] MEDS ORDERED: NON-FORMULARY ITEM (Cariprazine Hcl [Vraylar] 1.5 MG Capsule) PO SCH (10:00)
[2022-08-31] MEDS: Klor Con PO SCH ×4 (10:21→17:37)
[2022-08-31] MEDS: Zanaflex 4 MG PO SCH ×2 (10:21→21:18)
[2022-08-31] MEDS: BUSPAR 5 MG PO SCH ×2 (10:22→21:19)
[2022-08-31] MEDS: LYRICA 150MG PO SCH (10:24)
[2022-08-31] MEDS: Sodium Chloride 0.9% 1000 ML 1,000 ML IV SCH ×3 (10:25→21:27)
--- NOTE | 2022-08-31 12:41 | PCM.HP ---
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 She is a somewhat difficult historian. She started having pain yesterday, with diarrhea and vomiting. Pain is mid abd/josé-umbilical, "knotted up," 05/24, has never had simlar pain. In ER, CT abd/pelvis found new circumferential wall thickening of the colon with fat stranding, favoring Crohn's colitis. Pt without hx or family hx of IBD, per pt. Pt was admitted, put on IV morphine an dlevaquin and flagyl. 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 Pt ays she started feeling bad yesterday with abd pain, V, and D. Still having D today, less vomtiing, some nausea. - Review of Systems Cardiac: Chest Pain (sinc yest, substernal, 05/24, intermittent.) Abdominal/Gastrointestinal: Abdominal Pain, Nausea, Vomiting, Diarrhea Neurological: Dizziness (yest) Psychological: Anxiety, Depression, No Suicidal Ideations, No Homicidal Ideations All Other Systems: Reviewed and Negative Medications & Allergies Home Medications: Home Medication List Verapamil HCl 80 mg [Calan 80 mg] 40 mg PO DAILY 02/05/21 [History Confirmed 08/30/22] Buspirone HCl 7.5 mg PO BID 08/30/22 [History Confirmed 08/30/22] Cariprazine HCl [Vraylar] 1.5 mg PO DAILY 08/30/22 [History Confirmed 08/30/22] Melatonin [Melatonin ER] 10 mg PO HS 08/30/22 [History Confirmed 08/30/22] Omeprazole Magnesium [Prilosec Otc] 1 cap PO BID 08/30/22 [History Confirmed 08/30/22] Pregabalin [Lyrica 150Mg] 150 mg PO DAILY 08/30/22 [History Confirmed 08/30/22] Tizanidine HCl 4 mg PO BID 08/30/22 [History Confirmed 08/30/22] Allergies/Adverse Reactions: Allergies Allergy/AdvReac Type Severity Reaction Status Date / Time latex Allergy Verified 08/30/22 08:10 Penicillins Allergy Verified 08/30/22 08:10 - Past Medical History Past Medical History: Yes Neurological History: Migraines, Seizures ENT History: Other Respiratory History: Asthma Musculoskelatal History: Arthritis GI Medical History: GERD History: No Pertinent History Pyscho-Social History: Bipolar, Depression, Other Reproductive Disorders: No Pertinent History Comment: schizophrenia, TBI, occipital neurolgia, blind left eye - Female History Hx Last Menstrual Period: No longer has them Are you now?: No - Past Surgical History Past Surgical History: Yes Neuro Surgical History: No Pertinent History Cardiac History: No Pertinent History Respiratory Surgery: No Pertinent History GI Surgical History: No Pertinent History Genitourinary Surgical Hx: No Pertinent History Musculskeletal Surgical Hx: No Pertinent History Female Surgical History: Section, Tubal Ligation - Social History Smoking Status: Current every day smoker How long have you smoked: 17 yrs Exposure to second hand smoke: Yes Alcohol: None Drug Use: none Significant Family History: no pertinent family hx - Physical Exam Vital Signs: Vital Signs - 24 hr Temp Pulse Resp BP Pulse Ox 08/31/22 11:13 97.1 F 82 16 106/63 100 08/31/22 07:56 97.5 F 82 16 98/49 94 L 08/31/22 06:07 94 L 08/31/22 04:50 97.5 F 92 H 18 113/48 95 08/31/22 04:39 99.7 F 08/31/22 00:37 102.6 F 08/30/22 23:17 98.9 F 114 H 16 123/66 96 08/30/22 22:07 98 08/30/22 20:00 96 08/30/22 19:59 98 08/30/22 19:39 97.8 F 104 H 16 109/64 94 L 08/30/22 18:38 97 08/30/22 18:07 16 98 08/30/22 16:00 98.9 F 106 H 19 109/59 91 L 08/30/22 15:47 90 L 08/30/22 15:22 98.8 F 108 H 18 116/58 08/30/22 14:07 18 08/30/22 14:00 98.8 F 108 H 18 116/58 08/30/22 13:52 98.8 F 108 H 18 116/58 94 L 08/30/22 13:00 90 113/80 99 General Appearance: no apparent distress (well appearing, just showered), alert Neurologic Exam: oriented x 3, cooperative Eye Exam: eyes nml inspection Ears, Nose, Throat Exam: moist mucous membranes Neck Exam: normal inspection, non-tender, No lymphadenopathy, No subcutaneous emphysema, No thyromegaly Respiratory Exam: normal breath sounds, lungs clear, No crackles/rales, No rhonchi, No wheezing Cardiovascular Exam: regular rate/rhythm, normal heart sounds, No murmur Gastrointestinal/Abdomen Exam: soft, tenderness (L mid abd), No normal bowel sounds (diminished but present), No distention, No mass, No guarding, No rebound Back Exam: normal inspection, No CVA tenderness, No rash Extremity Exam: normal inspection, No pedal edema, No swelling Skin Exam: normal color, warm, dry, No rash Results - Labs Lab/Micro Results: Lab Results-Last 24 Hours 08/30/22 08/30/22 08/30/22 Range/Units 12:25 16:25 21:15 WBC (4.0-10.5) x10^3/uL RBC (4.1-5.4) x10^6/uL Hgb (12.0-16.0) g/dL Hct (35-47) % MCV (78-100) fL MCH (26-32) pg MCHC (32-36) g/dL RDW (11.5-14.0) % Plt Count (150-450) x10^3/uL MPV (7.5-11.0) fL Gran % (36.0-66.0) % Immature Gran % (Auto) (0.00-0.4) % Nucleat RBC Rel Count (0.00-0.1) % Eos # (Auto) (0-0.5) x10^3/uL Immature Gran # (Auto) (0.00-0.03) x10^3u/L Absolute Lymphs (auto) (1.0-4.6) x10^3/uL Absolute Monos (auto) (0.0-1.3) x10^3/uL Absolute Nucleated RBC (0.00-0.01) x10^3u/L Lymphocytes % (24.0-44.0) % Monocytes % (0.0-12.0) % Eosinophils % (0.00-5.0) % Basophils % (0.0-0.4) % Absolute Granulocytes (1.4-6.9) x10^3/uL Basophils # (0-0.4) x10^3/uL Sodium (137-145) mmol/L Potassium (3.5-5.1) mmol/L Chloride (98-107) mmol/L Carbon Dioxide (22-30) mmol/L Anion Gap (5-15) MEQ/L BUN (7-17) mg/dL Creatinine (0.52-1.04) mg/dL Estimated GFR ML/MIN Glucose (74-106) mg/dL Calcium (8.4-10.2) mg/dL Magnesium (1.6-2.3) mg/dL Total Bilirubin (0.2-1.3) mg/dL AST (14-36) U/L ALT (0-35) U/L Alkaline Phosphatase (38-126) U/L Troponin I < 0.012 < 0.012 < 0.012 (0.000-0.034) ng/mL Serum Total Protein (6.3-8.2) g/dL Albumin (3.5-5.0) g/dL Slides for Path Review 08/31/22 08/31/22 08/31/22 Range/Units 04:45 04:45 05:44 WBC 11.7 H (4.0-10.5) x10^3/uL RBC 4.65 (4.1-5.4) x10^6/uL Hgb 14.0 (12.0-16.0) g/dL Hct 42.1 (35-47) % MCV 90.5 (78-100) fL MCH 30.1 (26-32) pg MCHC 33.3 (32-36) g/dL RDW 13.5 (11.5-14.0) % Plt Count 217 (150-450) x10^3/uL MPV 11.2 H (7.5-11.0) fL Gran % 61.3 (36.0-66.0) % Immature Gran % (Auto) 0.3 (0.00-0.4) % Nucleat RBC Rel Count 0.0 (0.00-0.1) % Eos # (Auto) 0.01 (0-0.5) x10^3/uL Immature Gran # (Auto) 0.03 (0.00-0.03) x10^3u/L Absolute Lymphs (auto) 2.89 (1.0-4.6) x10^3/uL Absolute Monos (auto) 1.56 H (0.0-1.3) x10^3/uL Absolute Nucleated RBC 0.00 (0.00-0.01) x10^3u/L Lymphocytes % 24.7 (24.0-44.0) % Monocytes % 13.3 H (0.0-12.0) % Eosinophils % 0.1 (0.00-5.0) % Basophils % 0.3 (0.0-0.4) % Absolute Granulocytes 7.20 H (1.4-6.9) x10^3/uL Basophils # 0.03 (0-0.4) x10^3/uL Sodium 132 L (137-145) mmol/L Potassium 2.8 L* (3.5-5.1) mmol/L Chloride 102 (98-107) mmol/L Carbon Dioxide 23 (22-30) mmol/L Anion Gap 9.0 (5-15) MEQ/L BUN 5 L (7-17) mg/dL Creatinine 0.65 (0.52-1.04) mg/dL Estimated GFR > 60.0 ML/MIN Glucose 120 H (74-106) mg/dL Calcium 7.8 L (8.4-10.2) mg/dL Magnesium 1.6 (1.6-2.3) mg/dL Total Bilirubin 0.50 (0.2-1.3) mg/dL AST 18 (14-36) U/L ALT 16 (0-35) U/L Alkaline Phosphatase 62 (38-126) U/L Troponin I (0.000-0.034) ng/mL Serum Total Protein 6.3 (6.3-8.2) g/dL Albumin 3.6 (3.5-5.0) g/dL Slides for Path Review YES Microbiology 08/30/22 09:23 Urine Culture - Final Urine, Void MIXED DEMARCO; 3 OR MORE TYPES. NO PREDOMINANT ORGANISM. NO FURTHER WORKUP. PLEASE RESUBMIT IF CLINICALLY INDICATED. - Radiology Impressions Radiology Exams & Impressions: Radiology Procedures Category Date Time Status ABDOMEN AND PELVIS W/0 CONTRAS [CT] Stat Exams 08/30/22 08:35 Completed - Other Procedures and Tests Respiratory Therapy 08/30/22 19:59 Oxygen Nasal Cannula 2 lpm Assessment/Plan (1) Colitis Current Visit: Yes Status: Acute Assessment & Plan: On levaquin and flagyl IV day #3. I hesitate to call this Crohn's colitis until she has had a colonoscopy. If she is not improving over the next 24h, would consider adding a steroid. She does appear to be clinically better than in ER. Code(s): K52.9 - NONINFECTIVE GASTROENTERITIS AND COLITIS, UNSPECIFIED (2) Leukocytosis Current Visit: Yes Status: Acute Assessment & Plan: much improved, 11.7 today down from 20. Code(s): D72.829 - ELEVATED WHITE BLOOD CELL COUNT, UNSPECIFIED (3) Chest pain Current Visit: Yes Status: Resolved Qualifiers: Chest pain type: other chest pain Qualified Code(s): R07.89 - Other chest pain; R07.8 - Other chest pain Assessment & Plan: troponins neg x 4 Code(s): R07.9 - CHEST PAIN, UNSPECIFIED
[2022-08-31] MEDS: MELATONIN PO SCH (21:18)
[2022-08-31] MEDS ORDERED: MELATONIN 10 MG PO SCH (22:00)
[2022-09-01] MEDS: FLAGYL 500 MG IVPB 500 MG/100 ML BAG IV SCH ×4 (00:33→19:09)
[2022-09-01 05:54] LABS: Absolute Neutrophil Ct (ANC) 5.29 x10^3/uL (1.4-6.9); Basophil (Absolute #) 0.03 x10^3/uL (0-0.4); Eosinophil % 1.1 % (0.00-5.0); Eosinophil (Absolute #) 0.11 x10^3/uL (0-0.5); Hematocrit 39.3 % (35-47); Hemoglobin 13.1 g/dL (12.0-16.0); Lymphocyte (Absolute #) 2.59 x10^3/uL (1.0-4.6); Mean Cell Volume 89.9 fL (78-100); Mean Corpuscular Hgb Concent. 33.3 g/dL (32-36); Mean Platelet Volume 11.1 fL (7.5-11.0); Monocyte (Absolute #) 1.53 x10^3/uL (0.0-1.3); Neutrophil % 55.3 % (36.0-66.0); Platelet Count 198 x10^3/uL (150-450); Red Blood Count 4.37 x10^6/uL (4.1-5.4); Red Cell Distribution Width 13.2 % (11.5-14.0); White Blood Count 9.6 x10^3/uL (4.0-10.5)
[2022-09-01 06:35] LABS: ANION GAP 9.3 MEQ/L (5-15); CHLORIDE 106 mmol/L (98-107); Carbon Dioxide 21 mmol/L (22-30); Creatinine 1 0.45 mg/dL (0.52-1.04); EST GLOMERULAR FILTRATION RATE > 60.0 ML/MIN; Glucose 108 mg/dL (74-106); Potassium 3.6 mmol/L (3.5-5.1); SODIUM 134 mmol/L (137-145)
[2022-09-01 06:39] LABS: BLOOD UREA NITROGEN < 2 mg/dL (7-17)
[2022-09-01 08:11] LABS: Slide Review 1 YES
--- NOTE | 2022-09-01 08:38 | PCM.NOTE ---
Date and Time: 09/01/22834 Subjective Assessment: Kathleen bland diet well. However, she still says she is not feeling well and is having 10/10 pain. - Review of Systems Constitutional: No Fever Abdominal/Gastrointestinal: Abdominal Pain, No Vomiting Objective Exam General Appearance: no apparent distress (well appearing. Sits up easily in bed for lung exam.) Neurologic Exam: alert, cooperative Skin Exam: normal color, warm, dry, No rash Eye Exam: eyes nml inspection Ears, Nose, Throat Exam: moist mucous membranes Neck Exam: normal inspection Respiratory Exam: normal breath sounds, lungs clear, No crackles/rales, No rhonchi, No wheezing Cardiovascular Exam: regular rate/rhythm, normal heart sounds, No murmur Gastrointestinal/Abdomen Exam: soft, normal bowel sounds, tenderness (mostly in LLQ), No distention, No mass, No rebound Extremity Exam: normal inspection, No pedal edema, No swelling Back Exam: normal inspection, No rash OBJECTIVE DATA Vital Signs: Vital Signs - 24 hr Temp Pulse Resp BP Pulse Ox 09/01/22 07:34 97.3 F 86 16 122/58 94 L 09/01/22 07:20 94 L 09/01/22 06:07 20 97 09/01/22 04:00 98.8 F 88 16 118/58 99 09/01/22 02:07 20 99 08/31/22 23:41 98.7 F 85 16 102/50 98 08/31/22 22:07 20 99 08/31/22 20:07 20 96 08/31/22 20:00 97.1 F 105 H 18 105/58 96 08/31/22 18:03 95 08/31/22 16:00 97.6 F 93 H 16 104/57 93 L 08/31/22 11:13 97.1 F 82 16 106/63 100 08/31/22 10:07 16 95 Pain Assessment - Last Documented Pain Intensity 0 Pain Scale Used 0-10 Pain Scale Intake and Output: Intake & Output 08/29/22 08/30/22 08/31/22 09/01/22 11:59 11:59 11:59 11:59 Intake Total 960 9437 Output Total 4 1 Balance 956 9436 Weight 95.7 kg 95.7 kg Lab Results: Lab Results-Last 24 Hours 08/31/22 08/31/22 09/01/22 Range/Units 14:46 21:14 05:00 WBC 9.6 (4.0-10.5) x10^3/uL RBC 4.37 (4.1-5.4) x10^6/uL Hgb 13.1 (12.0-16.0) g/dL Hct 39.3 (35-47) % MCV 89.9 (78-100) fL MCH 30.0 (26-32) pg MCHC 33.3 (32-36) g/dL RDW 13.2 (11.5-14.0) % Plt Count 198 (150-450) x10^3/uL MPV 11.1 H (7.5-11.0) fL Gran % 55.3 (36.0-66.0) % Immature Gran % (Auto) 0.3 (0.00-0.4) % Nucleat RBC Rel Count 0.0 (0.00-0.1) % Eos # (Auto) 0.11 (0-0.5) x10^3/uL Immature Gran # (Auto) 0.03 (0.00-0.03) x10^3u/L Absolute Lymphs (auto) 2.59 (1.0-4.6) x10^3/uL Absolute Monos (auto) 1.53 H (0.0-1.3) x10^3/uL Absolute Nucleated RBC 0.00 (0.00-0.01) x10^3u/L Lymphocytes % 27.0 (24.0-44.0) % Monocytes % 16.0 H (0.0-12.0) % Eosinophils % 1.1 (0.00-5.0) % Basophils % 0.3 (0.0-0.4) % Absolute Granulocytes 5.29 (1.4-6.9) x10^3/uL Basophils # 0.03 (0-0.4) x10^3/uL Sodium (137-145) mmol/L Potassium 3.6 D 3.5 (3.5-5.1) mmol/L Chloride (98-107) mmol/L Carbon Dioxide (22-30) mmol/L Anion Gap (5-15) MEQ/L BUN (7-17) mg/dL Creatinine (0.52-1.04) mg/dL Estimated GFR ML/MIN Glucose (74-106) mg/dL Calcium (8.4-10.2) mg/dL Slides for Path Review YES 09/01/22 Range/Units 05:00 WBC (4.0-10.5) x10^3/uL RBC (4.1-5.4) x10^6/uL Hgb (12.0-16.0) g/dL Hct (35-47) % MCV (78-100) fL MCH (26-32) pg MCHC (32-36) g/dL RDW (11.5-14.0) % Plt Count (150-450) x10^3/uL MPV (7.5-11.0) fL Gran % (36.0-66.0) % Immature Gran % (Auto) (0.00-0.4) % Nucleat RBC Rel Count (0.00-0.1) % Eos # (Auto) (0-0.5) x10^3/uL Immature Gran # (Auto) (0.00-0.03) x10^3u/L Absolute Lymphs (auto) (1.0-4.6) x10^3/uL Absolute Monos (auto) (0.0-1.3) x10^3/uL Absolute Nucleated RBC (0.00-0.01) x10^3u/L Lymphocytes % (24.0-44.0) % Monocytes % (0.0-12.0) % Eosinophils % (0.00-5.0) % Basophils % (0.0-0.4) % Absolute Granulocytes (1.4-6.9) x10^3/uL Basophils # (0-0.4) x10^3/uL Sodium 134 L (137-145) mmol/L Potassium 3.6 (3.5-5.1) mmol/L Chloride 106 (98-107) mmol/L Carbon Dioxide 21 L (22-30) mmol/L Anion Gap 9.3 (5-15) MEQ/L BUN < 2 L (7-17) mg/dL Creatinine 0.45 L (0.52-1.04) mg/dL Estimated GFR > 60.0 ML/MIN Glucose 108 H (74-106) mg/dL Calcium 8.0 L (8.4-10.2) mg/dL Slides for Path Review Radiology Exams: Radiology Procedures Category Date Time Status ABDOMEN AND PELVIS W/0 CONTRAS [CT] Stat Exams 08/30/22 08:35 Completed Assessment/Plan (1) Colitis Current Visit: Yes Status: Acute Assessment & Plan: On Levaquin and flagyl. Clinically, she appears better, although she said that she guessed she would have to still rate the pain at a 10 because it hurts. Will try po pain meds, as she is kathleen bland diet really well. Will also try adding steroid for inflammatory aspect of colitis. Code(s): K52.9 - NONINFECTIVE GASTROENTERITIS AND COLITIS, UNSPECIFIED (2) Leukocytosis Current Visit: Yes Status: Resolved Qualifiers: Leukocytosis type: unspecified Qualified Code(s): D72.829 - Elevated white blood cell count, unspecified Code(s): D72.829 - ELEVATED WHITE BLOOD CELL COUNT, UNSPECIFIED
[2022-09-01] MEDS: Sodium Chloride 0.9% 1000 ML 1,000 ML IV SCH ×2 (08:56→21:45)
[2022-09-01] MEDS: OXYCODONE-ACETAMINOPHEN 10-325 PO PRN ×2 (09:36→21:46)
[2022-09-01] MEDS: Levofloxacin 500MG/100ML D5W 500 MG/100 ML BAG IV SCH (10:20)
[2022-09-01] MEDS: BUSPAR 5 MG PO SCH ×2 (10:20→21:47)
[2022-09-01] MEDS: LYRICA 150MG PO SCH (10:20)
[2022-09-01] MEDS: Zanaflex 4 MG PO SCH ×2 (10:21→21:46)
[2022-09-01] MEDS: solu-MEDROL 40 MG, Sterile H2O 10 ml 1 ML IV SCH ×4 (10:27→21:47)
[2022-09-01] MEDS: CALAN 80 MG PO SCH (10:28)
[2022-09-01] MEDS: MELATONIN PO SCH (21:46)
[2022-09-02] MEDS: FLAGYL 500 MG IVPB 500 MG/100 ML BAG IV SCH ×2 (00:01→05:41)
[2022-09-02 04:19] VITALS: PULSE 60
[2022-09-02 05:31] LABS: Absolute Neutrophil Ct (ANC) 5.88 x10^3/uL (1.4-6.9); Basophil (Absolute #) 0.01 x10^3/uL (0-0.4); Eosinophil (Absolute #) 0 x10^3/uL (0-0.5); Hematocrit 40.4 % (35-47); Hemoglobin 13.1 g/dL (12.0-16.0); Lymphocyte (Absolute #) 1.98 x10^3/uL (1.0-4.6); Lymphocytes % 23.5 % (24.0-44.0); Mean Cell Volume 90.8 fL (78-100); Mean Corpuscular Hemoglobin 29.4 pg (26-32); Mean Corpuscular Hgb Concent. 32.4 g/dL (32-36); Mean Platelet Volume 11.1 fL (7.5-11.0); Monocyte (Absolute #) 0.48 x10^3/uL (0.0-1.3); Monocytes % 5.7 % (0.0-12.0); Platelet Count 231 x10^3/uL (150-450); Red Blood Count 4.45 x10^6/uL (4.1-5.4); Red Cell Distribution Width 13.2 % (11.5-14.0); White Blood Count 8.4 x10^3/uL (4.0-10.5)
[2022-09-02] MEDS: OXYCODONE-ACETAMINOPHEN 10-325 PO PRN (05:55)
[2022-09-02 06:06] LABS: ANION GAP 10.4 MEQ/L (5-15); BLOOD UREA NITROGEN 3 mg/dL (7-17); CHLORIDE 106 mmol/L (98-107); Calcium 8.7 mg/dL (8.4-10.2); Carbon Dioxide 25 mmol/L (22-30); EST GLOMERULAR FILTRATION RATE > 60.0 ML/MIN; Glucose 149 mg/dL (74-106); Potassium 3.7 mmol/L (3.5-5.1); SODIUM 137 mmol/L (137-145)
[2022-09-02 07:41] VITALS: BP 92/52; O2SAT 95
--- NOTE | 2022-09-02 09:36 | PCM.DS ---
Discharge Summary Date of Admission: 08/30/22 13:10 Admitting Physician: SANCHO BEAUCHAMP Primary Care Provider: JESSICA GEIGER NP Allergies Allergies latex Allergy (Verified 08/30/22 08:10) Penicillins Allergy (Verified 08/30/22 08:10) Hospital Summary - Hospital Course Hospital Course: is a 37 year old female pt of Jessica Geiger JEWEL GAUGER with hx TBI, migraine, sz d/o, asthma, GERD, bipolar, schizophrenia, occipital neuralgia, and TOB abuse (18 pk yr) who was admitted through ER with colitis. CT concerning for possibly Crohn's colitis; pt with no personal or family hx of same. 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 She has been on levaquin and flagyl IV. She started tolerating po, but was still having significant pain, so was started on IV steroids and changed to po pain meds. This morning she is feeling much better, greets me at the door with her breakfast tray (already eaten) and tells me she is having minimal cramps, nothing more. Took percocet 10 last night and at 6 a.m. Will discharge to home on po levaquin and flagyl to finish 7d, po steroid, lactobacillus, and norco x 3d. F/u wtih Jessica Geiger. Will need outpatient colonoscopy. - Vitals & Intake/Output Vital Signs: Vital Signs Temperature 96.6 F 09/02/22 07:41 Pulse Rate 60 09/02/22 07:41 Respiratory Rate 16 09/02/22 07:41 Blood Pressure 92/52 09/02/22 07:41 O2 Sat by Pulse Oximetry 95 09/02/22 08:40 Intake & Output: Intake & Output 08/30/22 08/31/22 09/01/22 09/02/22 11:59 11:59 11:59 11:59 Intake Total 960 9677 4936 Output Total 4 1 Balance 956 9654 4939 Weight 95.7 kg 95.7 kg - Lab Result Diagrams: 09/02/22 04:15 09/02/22 04:15 Lab Results-Last 24 Hrs: Lab Results-Last 24 Hours 09/02/22 09/02/22 Range/Units 04:15 04:15 WBC 8.4 (4.0-10.5) x10^3/uL RBC 4.45 (4.1-5.4) x10^6/uL Hgb 13.1 (12.0-16.0) g/dL Hct 40.4 (35-47) % MCV 90.8 (78-100) fL MCH 29.4 (26-32) pg MCHC 32.4 (32-36) g/dL RDW 13.2 (11.5-14.0) % Plt Count 231 (150-450) x10^3/uL MPV 11.1 H (7.5-11.0) fL Gran % 70.0 H (36.0-66.0) % Immature Gran % (Auto) 0.7 H (0.00-0.4) % Nucleat RBC Rel Count 0.0 (0.00-0.1) % Eos # (Auto) 0 (0-0.5) x10^3/uL Immature Gran # (Auto) 0.06 H (0.00-0.03) x10^3u/L Absolute Lymphs (auto) 1.98 (1.0-4.6) x10^3/uL Absolute Monos (auto) 0.48 (0.0-1.3) x10^3/uL Absolute Nucleated RBC 0.00 (0.00-0.01) x10^3u/L Lymphocytes % 23.5 L (24.0-44.0) % Monocytes % 5.7 (0.0-12.0) % Eosinophils % 0.0 (0.00-5.0) % Basophils % 0.1 (0.0-0.4) % Absolute Granulocytes 5.88 (1.4-6.9) x10^3/uL Basophils # 0.01 (0-0.4) x10^3/uL Sodium 137 (137-145) mmol/L Potassium 3.7 (3.5-5.1) mmol/L Chloride 106 (98-107) mmol/L Carbon Dioxide 25 (22-30) mmol/L Anion Gap 10.4 (5-15) MEQ/L BUN 3 L (7-17) mg/dL Creatinine 0.40 L (0.52-1.04) mg/dL Estimated GFR > 60.0 ML/MIN Glucose 149 H (74-106) mg/dL Calcium 8.7 (8.4-10.2) mg/dL Micro Results-Entire Visit: Microbiology 08/30/22 08:52 Blood Culture - Preliminary Blood NO GROWTH TO DATE 08/30/22 08:43 Blood Culture - Preliminary Blood NO GROWTH TO DATE 08/30/22 09:23 Urine Culture - Final Urine, Void MIXED DEMARCO; 3 OR MORE TYPES. NO PREDOMINANT ORGANISM. NO FURTHER WORKUP. PLEASE RESUBMIT IF CLINICALLY INDICATED. - Procedures and Test Procedures and Tests throughout Hospitalization: Therapy Orders & Screens 08/30/22 15:47 Smoking Cessation Education ONCE Comment: Diagnosis: Crohn's colitis, fever Smoking Status: Current every day smoker How long have you smoked: 17 yrs Have you smoked in the past 12 months: Yes Approximately how many cigarettes per day: 1/2 ppd Do you dip or chew tobacco: No If,Former Smoker,when did you quit: week ago 08/30/22 19:59 Oxygen Nasal Cannula 2 lpm Comment: Diagnosis: Crohn's colitis, fever 08/30/22 20:51 EKG STAT Comment: chest pain Diagnosis: Crohn's colitis, fever Discharge Exam General Appearance: no apparent distress, alert Neurologic Exam: oriented x 3, cooperative, normal mood/affect Eye Exam: eyes nml inspection Ears, Nose, Throat Exam: moist mucous membranes Neck Exam: normal inspection Respiratory Exam: normal breath sounds, lungs clear, No crackles/rales, No rhonchi, No wheezing Cardiovascular Exam: regular rate/rhythm, normal heart sounds, No murmur Gastrointestinal/Abdomen Exam: soft, normal bowel sounds, No tenderness, No distention, No mass, No guarding, No rebound Back Exam: normal inspection, No rash Extremity Exam: normal inspection, No pedal edema, No swelling Skin Exam: normal color, warm, dry, No rash Final Diagnosis/Problem List - Final Discharge Diagnosis/Problem (1) Colitis Current Visit: Yes Status: Acute Assessment & Plan: Doing much better, home on po abx and steroid. f/u with op colonoscopy, to be arranged by PCP. Code(s): K52.9 - NONINFECTIVE GASTROENTERITIS AND COLITIS, UNSPECIFIED - Discharge Disposition: Home, Self-Care Condition: Good Prescriptions: New Lactobacillus Acidophilus [Acidophilus TABLET] 1 tab PO BID 10 Days #20 tablet Prednisone 20 mg [Deltasone 20 mg] 20 mg PO DAILY #17 tablet Metronidazole 500 mg [Flagyl 500 MG] 500 mg PO TID #12 tablet Hydrocodone/Acetaminophen [Hydrocodone-Acetamin 5-325 mg] 1 each PO TID PRN 3 Days #9 tablet MDD 3 PRN Reason: Severe Pain Levofloxacin [Levofloxacin 500 MG Tablet] 500 mg PO DAILY #4 tablet Acetaminophen 325 mg [Tylenol 325 mg] 650 mg PO Q4H PRN PRN tablet PRN Reason: Pain And/Or Fever Continue Verapamil HCl 80 mg [Calan 80 mg] 40 mg PO DAILY Tizanidine HCl 4 mg PO BID Buspirone HCl 7.5 mg PO BID Omeprazole Magnesium [Prilosec Otc] 1 cap PO BID Cariprazine HCl [Vraylar] 1.5 mg PO DAILY Melatonin [Melatonin ER] 10 mg PO HS Pregabalin [Lyrica 150Mg] 150 mg PO DAILY Follow up with: JESSICA GEIGER JEWEL GAUGER [Primary Care Provider] -
[2022-09-02] MEDS: CALAN 80 MG PO SCH (10:39)
[2022-09-02] MEDS: Levofloxacin 500MG/100ML D5W 500 MG/100 ML BAG IV SCH (10:40)
[2022-09-02] MEDS: BUSPAR 5 MG PO SCH (10:50)
[2022-09-02] MEDS: Zanaflex 4 MG PO SCH (10:50)
[2022-09-02] MEDS: LYRICA 150MG PO SCH (10:50)
[2022-09-02] MEDS: solu-MEDROL 40 MG, Sterile H2O 10 ml 1 ML IV SCH ×2 (10:57)
== END 2022-09-02 11:20 | disposition home or self-care (01) ==
LOC: ED 08:00 → MED SURG 13:10
PROVIDERS: ADMIT Family Medicine; ATTEND Family Medicine
DX: K52.9 Noninfective gastroenteritis and colitis, unspecified (principal); R07.9 Chest pain, unspecified; D72.829 Elevated white blood cell count, unspecified; F31.9 Bipolar disorder, unspecified; Z79.899 Other long term (current) drug therapy; Z20.828 Contact with and (suspected) exposure to other viral communicable diseases; Z87.820 Personal history of traumatic brain injury; Z72.0 Tobacco use
CPT/HCPCS: 0241U; 36000; 36415; 74176; 80048; 80053; 81001; 81025; 83605; 83735; 84132; 84484; 85025; 87040; 87086; 93005; 93268; 94760; 94762; 96360; 96365; 96374; 96375; 99285; G0378; J1170; J1956; J2270; J2405; J2550; J2920; J3480; A9270-GY

== ENCOUNTER 2022-10-23 20:54 | Emergency (ER) | payer OTHER ==
[2022-10-23 21:01] VITALS: O2SAT 100
--- NOTE | 2022-10-23 21:03 | ERPHSYRPT ---
- History of Present Illness Time Seen by Provider: 10/23/22 21:02 Historian: patient Exam Limitations: no limitations Physician History: This is a 37-year-old obese white female patient who is a poor historian secondary to traumatic brain injury several years ago. She has no known coronary disease but presents with right anterior chest pain which radiates into her right shoulder. Patient has chronic right shoulder pain and right humerus pain and she has not reinjured this area. 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 Patient is a daily smoker of cigarettes. Patient also has a history of migraine headaches, s eizures, bipolar disorder, schizophrenia, gastroesophageal reflux disease and occipital neuralgia. Patient denies shortness of breath. She has not had fevers. She denies cough. She has no abdominal pain. She has no nausea vomiting or diarrhea Timing/Duration: today Activities at Onset: none Quality: sharpness Location: other (Right anterior chest) Chest Pain Radiation: arm (Right shoulder and upper humerus on the right side) Severity of Pain-Max: moderate Severity of Pain-Current: mild (To moderate) Modifying Factors: Improves With: nothing Associated Symptoms: denies symptoms Prior Chest Pain/Cardiac Workup: no prior chest pain, no prior cardiac workup Nitro Today/Relief: no nitro taken today Aspirin Treatment Today: no aspirin today Allergies/Adverse Reactions: latex Allergy (Verified 10/23/22 21:11) Penicillins Allergy (Verified 10/23/22 21:11) Home Medications: Verapamil HCl 80 mg [Calan 80 mg] 40 mg PO DAILY 02/05/21 [History] Buspirone HCl 7.5 mg PO BID 08/30/22 [History] Cariprazine HCl [Vraylar] 1.5 mg PO DAILY 08/30/22 [History] Melatonin [Melatonin ER] 10 mg PO HS 08/30/22 [History] Omeprazole Magnesium [Prilosec Otc] 1 cap PO BID 08/30/22 [History] Pregabalin [Lyrica 150Mg] 150 mg PO DAILY 08/30/22 [History] Tizanidine HCl 4 mg PO BID 08/30/22 [History] Hx Tetanus, Diphtheria Vaccination/Date Given: Yes Hx Influenza Vaccination/Date Given: Yes Hx Pneumococcal Vaccination/Date Given: No Travel Risk - International Travel Have you traveled outside of the country in past 3 weeks: No - Coronavirus Screening Are you exhibiting any of the following symptoms?: No Close contact with a COVID-19 positive Pt in past 14-21 Days: No - Vaccine Status Have you recieved a Covid-19 vaccination: Yes 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 - Vaccination Dates Dates if Unknown: unknown - Review of Systems Constitutional: No Symptoms Eyes: No Symptoms Ears, Nose, & Throat: No Symptoms Respiratory: No Symptoms Cardiac: Chest Pain (Right anterior chest with radiation to the right shoulder and right upper humerus) Abdominal/Gastrointestinal: No Symptoms Genitourinary Symptoms: No Symptoms Musculoskeletal: No Symptoms Skin: No Symptoms Neurological: No Symptoms Psychological: No Symptoms Endocrine: No Symptoms Hematologic/Lymphatic: No Symptoms Immunological/Allergic: No Symptoms All Other Systems: Reviewed and Negative - Past Medical History Pertinent Past Medical History: Yes Neurological History: Migraines, Seizures ENT History: Other Respiratory History: Asthma Musculoskeletal History: Arthritis GI Medical History: GERD History: No Pertinent History Psycho-Social History: Bipolar, Depression, Other Female Reproductive Disorders: No Pertinent History Other Medical History: schizophrenia, TBI, occipital neurolgia, blind left eye - Past Surgical History Past Surgical History: Yes Neuro Surgical History: No Pertinent History Cardiac: No Pertinent History Respiratory: No Pertinent History Gastrointestinal: No Pertinent History Genitourinary: No Pertinent History Musculoskeletal: No Pertinent History Female Surgical History: Section, Tubal Ligation - Social History Smoking Status: Current every day smoker How long have you smoked: 17 yrs Exposure to second hand smoke: Yes Drug Use: none Patient Lives Alone: No Significant Family History: no pertinent family hx - Nursing Vital Signs Nursing Vital Signs: Initial Vital Signs Temperature 98.1 F 10/23/22 20:57 Pulse Rate 90 10/23/22 20:57 Respiratory Rate 20 10/23/22 20:57 Blood Pressure 128/85 10/23/22 20:57 O2 Sat by Pulse Oximetry 100 10/23/22 20:57 Pain Scale Pain Intensity 8 - Physical Exam General Appearance: no apparent distress, alert, anxiety, obese Eye Exam: PERRL/EOMI, eyes nml inspection Ears, Nose, Throat Exam: normal ENT inspection, moist mucous membranes Neck Exam: normal inspection, non-tender, supple, full range of motion Respiratory Exam: normal breath sounds, chest tenderness (Right anterior chest with radiation to shoulder. 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 tested, normal mood/affect, nml cerebellar function, nml station & gait, sensation nml Skin Exam: normal color, warm, dry Lymphatic Exam: No adenopathy SpO2 Interpretation: normal SpO2: 100 O2 Delivery: Room Air - Course Nursing assessment & vital signs reviewed: Yes EKG Interpreted by Me: RATE ([id number]), Sinus Rhythm, NORMAL AXIS, NORMAL INTERVALS, NORMAL QRS, NORMAL ST-T, Other (No acute ischemic changes on today's twelve-lead EKG this EKG was interpreted by me) Ordered Tests: Active Orders 24 hr Category Date Time Status EKG-ER Only STAT Care 10/23/22 21:19 Active IV Insertion STAT Care 10/23/22 21:19 Active Pulse Oximetry (ED) STAT Care 10/23/22 21:19 Active CBC W DIFF Stat Lab 10/23/22 21:19 Completed CMP Stat Lab 10/23/22 21:19 Completed D-DIMER QUANTITATIVE Stat Lab 10/23/22 21:19 Completed PROTIME WITH INR Stat Lab 10/23/22 21:19 Completed TROPONIN Q4H Lab 10/23/22 21:30 Completed TROPONIN Q4H Lab 10/24/22 01:30 Ordered TROPONIN Q4H Lab 10/24/22 06:30 Ordered Medication Summary Discontinued Medications Generic Name Dose Route Start Last Admin Trade Name Minorq PRN Reason Stop Dose Admin Aspirin 324 mg 10/23/22 21:19 10/23/22 21:26 Aspirin 81 Mg Tab.Chew PO 10/23/22 21:20 324 mg STAT ONE Administration Aspirin Confirm 10/23/22 21:25 Aspirin 81 Mg Tab.Chew Administered 10/23/22 21:26 Dose 324 mg .ROUTE .STK-MED ONE Lab/Rad Data: Laboratory Result Diagrams 10/23/22 21:19 10/23/22 21:19 Laboratory Results 10/23/22 10/23/22 10/23/22 Range/Units 21:30 21:19 21:19 WBC (4.0-10.5) x10^3/uL RBC (4.1-5.4) x10^6/uL Hgb (12.0-16.0) g/dL Hct (35-47) % MCV (78-100) fL MCH (26-32) pg MCHC (32-36) g/dL RDW (11.5-14.0) % Plt Count (150-450) x10^3/uL MPV (7.5-11.0) fL Gran % (36.0-66.0) % Immature Gran % (Auto) (0.00-0.4) % Nucleat RBC Rel Count (0.00-0.1) % Eos # (Auto) (0-0.5) x10^3/uL Immature Gran # (Auto) (0.00-0.03) x10^3u/L Absolute Lymphs (auto) (1.0-4.6) x10^3/uL Absolute Monos (auto) (0.0-1.3) x10^3/uL Absolute Nucleated RBC (0.00-0.01) x10^3u/L Lymphocytes % (24.0-44.0) % Monocytes % (0.0-12.0) % Eosinophils % (0.00-5.0) % Basophils % (0.0-0.4) % Absolute Granulocytes (1.4-6.9) x10^3/uL Basophils # (0-0.4) x10^3/uL PT 9.5 (9.4-12.5) SECONDS INR 0.86 (0.8-3.0) D-Dimer < 0.19 (0.0-0.50) mg/L Sodium 140 (137-145) mmol/L Potassium 3.5 (3.5-5.1) mmol/L Chloride 103 (98-107) mmol/L Carbon Dioxide 28 (22-30) mmol/L Anion Gap 12.5 (5-15) MEQ/L BUN 16 (7-17) mg/dL Creatinine 0.74 (0.52-1.04) mg/dL Estimated GFR > 60.0 ML/MIN Glucose 88 (74-106) mg/dL Calcium 9.1 (8.4-10.2) mg/dL Total Bilirubin 0.30 (0.2-1.3) mg/dL AST 27 (14-36) U/L ALT 34 (0-35) U/L Alkaline Phosphatase 85 (38-126) U/L Troponin I < 0.012 (0.000-0.034) ng/mL Serum Total Protein 7.6 (6.3-8.2) g/dL Albumin 4.5 (3.5-5.0) g/dL 10/23/22 Range/Units 21:19 WBC 12.1 H (4.0-10.5) x10^3/uL RBC 4.52 (4.1-5.4) x10^6/uL Hgb 13.9 (12.0-16.0) g/dL Hct 43.0 (35-47) % MCV 95.1 (78-100) fL MCH 30.8 (26-32) pg MCHC 32.3 (32-36) g/dL RDW 14.1 H (11.5-14.0) % Plt Count 311 (150-450) x10^3/uL MPV 11.2 H (7.5-11.0) fL Gran % 47.2 (36.0-66.0) % Immature Gran % (Auto) 0.4 (0.00-0.4) % Nucleat RBC Rel Count 0.0 (0.00-0.1) % Eos # (Auto) 0.24 (0-0.5) x10^3/uL Immature Gran # (Auto) 0.05 H (0.00-0.03) x10^3u/L Absolute Lymphs (auto) 5.10 H (1.0-4.6) x10^3/uL Absolute Monos (auto) 0.98 (0.0-1.3) x10^3/uL Absolute Nucleated RBC 0.00 (0.00-0.01) x10^3u/L Lymphocytes % 42.0 (24.0-44.0) % Monocytes % 8.1 (0.0-12.0) % Eosinophils % 2.0 (0.00-5.0) % Basophils % 0.3 (0.0-0.4) % Absolute Granulocytes 5.72 (1.4-6.9) x10^3/uL Basophils # 0.04 (0-0.4) x10^3/uL PT (9.4-12.5) SECONDS INR (0.8-3.0) D-Dimer (0.0-0.50) mg/L Sodium (137-145) mmol/L Potassium (3.5-5.1) mmol/L Chloride (98-107) mmol/L Carbon Dioxide (22-30) mmol/L Anion Gap (5-15) MEQ/L BUN (7-17) mg/dL Creatinine (0.52-1.04) mg/dL Estimated GFR ML/MIN Glucose (74-106) mg/dL Calcium (8.4-10.2) mg/dL Total Bilirubin (0.2-1.3) mg/dL AST (14-36) U/L ALT (0-35) U/L Alkaline Phosphatase (38-126) U/L Troponin I (0.000-0.034) ng/mL Serum Total Protein (6.3-8.2) g/dL Albumin (3.5-5.0) g/dL - Progress Progress: improved, re-examined Air Movement: good Progress Note: 10/23/22 22:58 Patient states that she is feeling very good at this time. She still has pain in that right shoulder which is chronic. She states she is ready be discharged to home. This patient's medical issue is 1 of moderate complexity. Level of complexity and the work-up was based on review of the patient's past medical history, review of the patient's medication list, review of the patient's drug allergy list, past medical history, and findings on physical examination. The work-up performed included placement of an intravenous line, twelve-lead EKG, D-dimer, troponin, CBC, CMP. I reviewed the results of the work-up and the results were discussed with the patient. Patient does have a mild leukocytosis. Patient is afebrile she has no cough, she has no abdominal pain, she has no diarrhea symptoms or dysuria. I discussed with her the option of placing her on some an tibiotics. She was told I did not know what we were actually treating. She stated to hold off of the antibiotics. Discharge instructions include drinking plenty of fluids. Following up with her primary care provider for further evaluation management. Blood Culture(s) Obtained: No Antibiotics given: No Counseled pt/family regarding: lab results, diagnosis, need for follow-up Medical Desision Making - Independent Historian Additional History obtained from: Spouse - Discussion of managment Reviewed:: Test results Agreed on:: Treatment plan, need for follow-up - Diagnostic Testing Diagnostic test were ordered, analyzed, and reviewed by me: Yes - Departure Departure Disposition: Home Clinical Impression: Non-cardiac chest pain, Leukocytosis, unspecified Condition: Stable Critical Care Time: No Referrals: JESSICA ALSTON, PELLETISING EXTRUDER OPERATOR [Primary Care Provider] - Follow up/PCP as directed Additional Instructions: Drink plenty of fluids. Take your medication as prescribed. Follow-up with your primary care provider for further evaluation and management. Forms: Work/School Release Form
[2022-10-23] MEDS ORDERED: BABY ASPIRIN 81 MG CHEW PO ONE (21:19)
[2022-10-23] MEDS ORDERED: BABY ASPIRIN 81 MG CHEW ONE (21:25)
[2022-10-23 21:54] LABS: Absolute Neutrophil Ct (ANC) 5.72 x10^3/uL (1.4-6.9); BASOPHIL % 0.3 % (0.0-0.4); Basophil (Absolute #) 0.04 x10^3/uL (0-0.4); Eosinophil (Absolute #) 0.24 x10^3/uL (0-0.5); Hemoglobin 13.9 g/dL (12.0-16.0); IMMATURE GRAN # 0.05 x10^3u/L (0.00-0.03); IMMATURE GRAN % 0.4 % (0.00-0.4); Mean Cell Volume 95.1 fL (78-100); Mean Corpuscular Hemoglobin 30.8 pg (26-32); Mean Corpuscular Hgb Concent. 32.3 g/dL (32-36); Mean Platelet Volume 11.2 fL (7.5-11.0); Monocyte (Absolute #) 0.98 x10^3/uL (0.0-1.3); Monocytes % 8.1 % (0.0-12.0); Neutrophil % 47.2 % (36.0-66.0); Platelet Count 311 x10^3/uL (150-450); Red Blood Count 4.52 x10^6/uL (4.1-5.4); Red Cell Distribution Width 14.1 % (11.5-14.0); White Blood Count 12.1 x10^3/uL (4.0-10.5)
[2022-10-23 22:12] VITALS: BP 113/43; PULSE 80
[2022-10-23 22:17] LABS: D-DIMER QUANTITATIVE < 0.19 mg/L (0.0-0.50); INR 0.86 (0.8-3.0); PROTIME 9.5 SECONDS (9.4-12.5)
[2022-10-23 22:22] LABS: ALBUMIN 4.5 g/dL (3.5-5.0); ALKALINE PHOSPHATASE 85 U/L (38-126); ANION GAP 12.5 MEQ/L (5-15); BLOOD UREA NITROGEN 16 mg/dL (7-17); CHLORIDE 103 mmol/L (98-107); Calcium 9.1 mg/dL (8.4-10.2); Carbon Dioxide 28 mmol/L (22-30); Creatinine 1 0.74 mg/dL (0.52-1.04); EST GLOMERULAR FILTRATION RATE > 60.0 ML/MIN; Glucose 88 mg/dL (74-106); Potassium 3.5 mmol/L (3.5-5.1); SGOT/AST 27 U/L (14-36); SGPT/ALT 34 U/L (0-35); SODIUM 140 mmol/L (137-145); Total Protein 7.6 g/dL (6.3-8.2)
[2022-10-24 03:10] LABS: Slide Review 1 YES
== END 2022-10-23 23:25 | disposition home or self-care (01) ==
LOC: ED 20:54
DX: R07.89 Other chest pain (principal); D72.829 Elevated white blood cell count, unspecified; Z87.820 Personal history of traumatic brain injury; Z79.899 Other long term (current) drug therapy; Z72.0 Tobacco use
CPT/HCPCS: 36000; 36415; 80053; 84484; 85025; 85379; 85610; 93005; 94760; 99284; A9270-GY